=== PATIENT | male | born 1960 | race African-American/Black ===

== ENCOUNTER 2017-07-27 15:11 | Emergency (ER) | payer SELFPAY ==
[2017-07-27 15:42] LABS: Bilirubin Negative (Negative); Blood, Urine Negative (Negative); Glucose, Urine (Dipstick) >=1000 mg/dL (Negative); Ketone, Urine 15 mg/dL (Negative); Nitrite Negative (Negative); Protein, Urine (Dipstick) 100 mg/dL (Neg-Trace)
[2017-07-27] MEDS ORDERED: Ketorolac Tromethamine 60 MG/2 ML VIAL ONE (15:44)
[2017-07-27 15:50] LABS: Bacteria/HPF None Seen HPF (None Seen); Hyaline Casts/LPF 4-6 HYALINE CAST LPF (0-3 Hyaline); Squamous Epithelial None Seen HPF (0-3); WBC/HPF 0-3 HPF (0-3)
== END 2017-07-27 16:00 | disposition home or self-care (01) ==
LOC: ERS 15:11
DX: M54.5 Low back pain (principal); R60.0 Localized edema; I11.0 Hypertensive heart disease with heart failure; I50.9 Heart failure, unspecified; E11.9 Type 2 diabetes mellitus without complications; E78.5 Hyperlipidemia, unspecified; F32.9 Major depressive disorder, single episode, unspecified
CPT/HCPCS: 36416; 81003; 81015; 96372; J1885

== ENCOUNTER 2017-10-19 14:09 | Emergency (ER) | payer SELFPAY | END 2017-10-19 17:35 | disposition home or self-care (01) | LOC: ERS 14:09 | DX: J11.1 Influenza due to unidentified influenza virus with other respiratory manifestations (principal); I11.0 Hypertensive heart disease with heart failure; I50.9 Heart failure, unspecified; E11.9 Type 2 diabetes mellitus without complications; E78.5 Hyperlipidemia, unspecified; F32.9 Major depressive disorder, single episode, unspecified | CPT/HCPCS: 36416; 99283 ==

== ENCOUNTER 2019-02-02 16:53 | Emergency (ER) | payer SELFPAY ==
--- NOTE | 2019-02-02 17:43 | RAD ---
FEXAM: Portable chest PROVIDED CLINICAL HISTORY: Chest pain COMPARISON: 10/06/2016 FINDINGS: Cardiac and mediastinal silhouette is within normal limits. No focal consolidation, pleural fluid or pneumothorax evident. IMPRESSION: No evidence for an acute cardiopulmonary process.
[2019-02-02 17:52] LABS: #Eosinphils 0.1 thou/uL (0.0-0.7); #Lymphocytes 1.9 thou/uL (1.20-3.40); #Monocytes 0.5 thou/uL (0.11-0.59); #Neutrophils 4.9 thou/uL (1.40-6.50); %Basophils 0.6 % (0.0-1.0); %Eosinophils 1.4 % (0.0-10.0); %Lymphocytes 25.3 % (21.0-51.0); %Monocytes 6.7 % (0.0-10.0); Hemoglobin 15.7 g/dL (14.0-18.0); Mean Corpuscular Hemoglobin 28.3 pg (27.0-31.0); Mean Corpuscular Volume 91.6 fL (78.0-98.0); Mean Platelet Volume 9.2 fL (7.4-10.4); Platelet Count 166 thou/uL (130-400); RBC Distribution Width 11.6 % (11.5-14.5); Red Blood Cell (RBC) Count 5.55 mill/uL (4.70-6.10); White Blood Cell (WBC) Count 7.4 thou/uL (4.8-10.8)
[2019-02-02 18:15] LABS: ALT (SGPT) 16 U/L (8-55); AST (SGOT) 12 U/L (5-34); Albumin 3.9 g/dL (3.5-5.0); Alkaline Phosphatase 70 U/L (40-150); Anion Gap 16 mmol/L (10-20); BUN (Urea Nitrogen) 24 mg/dL (8.4-25.7); Bilirubin, Total 0.6 mg/dL (0.2-1.2); Calc. Creatinine Clearance 0 mL/min (70-130); Calcium 9.7 mg/dL (7.8-10.44); Carbon Dioxide 26 mmol/L (22-29); Chloride 93 mmol/L (98-107); Estimated GFR-MDRD 50; Globulin 3.3 g/dL (2.4-3.5); Protein, Total 7.2 g/dL (6.0-8.3); Sodium 130 mmol/L (136-145)
[2019-02-02 18:23] LABS: Glucose 583 mg/dL (70-105)
[2019-02-02] MEDS ORDERED: Insulin Regular 300 UNITS/3 ML VIAL ONE (18:43)
[2019-02-02 18:56] LABS: Bilirubin Negative (Negative); Blood, Urine Negative (Negative); Clarity CLEAR (Clear); Glucose, Urine (Dipstick) >=1000 mg/dL (Negative); Leukocyte Negative (Negative); Nitrite Negative (Negative); Protein, Urine (Dipstick) Negative (Neg-Trace); Specific Gravity, Urine 1.034 (1.002-1.036); Urobilinogen 0.2 mg/dL (0.2-1.0)
== END 2019-02-02 20:22 | disposition home or self-care (01) ==
LOC: ERS 16:53
DX: E11.65 Type 2 diabetes mellitus with hyperglycemia (principal); R81 Glycosuria; E11.9 Type 2 diabetes mellitus without complications; E78.5 Hyperlipidemia, unspecified; I11.0 Hypertensive heart disease with heart failure; I50.9 Heart failure, unspecified; F32.9 Major depressive disorder, single episode, unspecified; Z79.4 Long term (current) use of insulin
CPT/HCPCS: 36415; 36416; 71045; 80053; 81003; 82010; 83880; 84484; 85025; 87086; 93005; 96361; 96374; J1815

== ENCOUNTER 2019-03-16 08:59 | Observation (INO) | payer SELFPAY ==
[2019-03-16] MEDS ORDERED: Ketorolac Tromethamine 30 MG/ML VIAL ONE (09:26)
[2019-03-16 09:57] LABS: #Eosinphils 0.1 thou/uL (0.0-0.7); #Lymphocytes 1.6 thou/uL (1.20-3.40); #Monocytes 0.6 thou/uL (0.11-0.59); #Neutrophils 4.3 thou/uL (1.40-6.50); %Basophils 0.5 % (0.0-1.0); %Eosinophils 1.7 % (0.0-10.0); %Lymphocytes 24.2 % (21.0-51.0); %Monocytes 8.6 % (0.0-10.0); %Neutrophils 65.1 % (42.0-75.0); Hemoglobin 14.1 g/dL (14.0-18.0); Mean Corpuscular HGB CONC 32.7 g/dL (32.0-36.0); Mean Corpuscular Hemoglobin 29.9 pg (27.0-31.0); Mean Corpuscular Volume 91.3 fL (78.0-98.0); Mean Platelet Volume 8.7 fL (7.4-10.4); Platelet Count 167 thou/uL (130-400); Red Blood Cell (RBC) Count 4.74 mill/uL (4.70-6.10); White Blood Cell (WBC) Count 6.6 thou/uL (4.8-10.8)
[2019-03-16 10:17] LABS: ALT (SGPT) 13 U/L (8-55); AST (SGOT) 14 U/L (5-34); Albumin 3.4 g/dL (3.5-5.0); Alkaline Phosphatase 50 U/L (40-150); Anion Gap 14 mmol/L (10-20); BUN (Urea Nitrogen) 26 mg/dL (8.4-25.7); Bilirubin, Total 0.5 mg/dL (0.2-1.2); CK (CPK) 132 U/L (30-200); Calc. Creatinine Clearance 0 mL/min (70-130); Calcium 9.5 mg/dL (7.8-10.44); Carbon Dioxide 25 mmol/L (22-29); Chloride 102 mmol/L (98-107); Estimated GFR-MDRD 74; Globulin 3.1 g/dL (2.4-3.5); Glucose 177 mg/dL (70-105); Potassium 3.9 mmol/L (3.5-5.1); Protein, Total 6.5 g/dL (6.0-8.3); Sodium 137 mmol/L (136-145)
[2019-03-16] MEDS ORDERED: Nitroglycerin 0.4 MG TAB (25 Tab Bottle) SL PRN (12:43)
[2019-03-16] MEDS ORDERED: Benzonatate 100 MG CAP PO PRN (12:43)
[2019-03-16] MEDS ORDERED: hydrALAZINE 20 MG/ML VIAL SLOW IVP PRN (12:43)
[2019-03-16] MEDS ORDERED: Ondansetron PF 4 MG/2 ML Vial IVP PRN ×2 (12:43)
[2019-03-16] MEDS ORDERED: Diabetic Tussin 200 MG/10 ML UDCUP PO PRN (12:43)
[2019-03-16] MEDS ORDERED: Senokot S 8.6-50 MG TAB PO PRN (12:43)
[2019-03-16] MEDS ORDERED: Bisacodyl 5 MG TAB PO PRN (12:43)
[2019-03-16] MEDS ORDERED: Sodium Chloride 0.65% Nasal 44 ML BOT EA NARE PRN (12:43)
[2019-03-16] MEDS ORDERED: Acetaminophen 325 MG TAB PO PRN (12:43)
[2019-03-16] MEDS ORDERED: Sodium Chloride 0.9% 1,000 ML IV SCH (12:45)
[2019-03-16] MEDS ORDERED: Dextrose 50% Abboject 50 ML SYRINGE SLOW IVP PRN (13:04)
[2019-03-16] MEDS ORDERED: HumaLOG 300 UNITS/3 ML VIAL SC PRN (13:04)
[2019-03-16] MEDS ORDERED: Dextrose 5% in Water 1,000 ML IV PRN (13:04)
[2019-03-16] MEDS: Sodium Chloride 0.9% 1,000 ML IV SCH (13:26)
--- NOTE | 2019-03-16 13:43 | HP ---
PRIMARY CARE PHYSICIAN: [facility]. CHIEF COMPLAINT: Diffuse muscle aches. HISTORY OF PRESENTING ILLNESS: Mr. Joseph is a 58-year-old male with past medical history of diabetes mellitus, hypertension, chronic combined congestive heart failure, who presented to the emergency room with above-mentioned complaint. History is mainly obtained by the patient himself and electronic medical records have been reviewed. Case has been discussed with the emergency room physician, Dr. Chan. The patient came to the ER today for worsening muscle cramps. When it is asked him specifically how long he has been having it, he eventually said that it has been going on for months. He denies any recent illnesses. He denies any nausea, vomiting, diarrhea, abdominal pain. He denies any blood in his urine or stools. He denies any recent illnesses with fever, chills, sore throat, rhinorrhea, etc. He denies any chest pain, shortness of breath either. He has good oral intake. He is compliant with his medications. He also denies any weight loss or weight gain. He does have some dizziness when getting up. Mostly the cramps are happening in his legs and in his hands. Upon presentation to the emergency room, he was hemodynamically stable with a blood pressure of 146/87, pulse of 77, saturating 98% on room air. His blood work was rather unimpressive. The lactic acid, however, was elevated to 4.8. This is with normal levels of creatine kinase at 132 and normal levels of creatinine at 1.23. His BUN is slightly increased at 26. He was diagnosed as having lactic acidosis most likely from metformin. He is now being admitted to medical floor under observation status for same. PAST MEDICAL HISTORY: 1. Diabetes mellitus type 2. The patient reports he has been on metformin for at least 30 or 40 years. 2. History of chronic combined heart failure based on the echocardiogram done in 2013. His EF was estimated as 20% to 25% at that time. 3. Hypertension with hypertensive heart disease. 4. Moderate aortic insufficiency. 5. Dyslipidemia. 6. History of tobacco abuse in the past. PAST SURGICAL HISTORY: Reviewed with the patient and none. ALLERGIES: NO KNOWN MEDICATION ALLERGIES. SOCIAL HISTORY: He quit smoking about 18 years ago. No history of drug, tobacco, or alcohol abuse currently. The patient lives at the [place]. FAMILY HISTORY: Mother had history of bypass surgery in the hospital. HOME MEDICATIONS: He does not remember which medication he takes and he does not have any list or his medication bottles with him. PAST PSYCHIATRIC HISTORY: History of suicide attempts by cutting his throat in 2015, history of multiple psychiatric admissions, last admission to [facility] in 2014. REVIEW OF SYSTEMS: A 14-point review of system is done and is negative except for those mentioned in the history and physical. CONSTITUTIONAL: Negative for weight loss or gain, ability to conduct usual activities. SKIN: Negative for rash, itching. EYES: Negative for double vision, pain. ENT/MOUTH: Negative for nose bleeding, neck stiffness, pain, tenderness. CARDIOVASCULAR: Negative for palpitations, dyspnea on exertion, orthopnea. RESPIRATORY: Negative for shortness of breath, wheezing, cough, hemoptysis, fever or night sweats. GASTROINTESTINAL: Negative for poor appetite, abdominal pain, heartburn, nausea, vomiting, constipation, or diarrhea. GENITOURINARY: Negative for urgency, frequency, dysuria, nocturia. MUSCULOSKELETAL: Negative for pain, swelling. NEUROLOGIC/PSYCHIATRIC: Negative for anxiety, depression. ALLERGY/IMMUNOLOGIC: Negative for skin rash, bleeding tendency. LABORATORY DATA: His CBC is unremarkable. Serum chemistry showed BUN 26, creatinine 1.23, blood sugar 177, lactic acid 4.8 with normal creatine kinase and normal liver enzymes. Normal magnesium at 2.0. PHYSICAL EXAMINATION: VITAL SIGNS: Upon presentation, blood pressure 146/87, pulse of 77, respirations 15, saturating 98% on room air, temperature 97.5. GENERAL: No acute distress. He is somewhat uncomfortable, but is awake, alert, and oriented x3. HEENT: Mucous membrane is moist and pink. No oropharyngeal exudate or erythema. Head is normocephalic and atraumatic. Pupils are equal and reactive to light and accommodation. Extraocular movement intact. NECK: Supple without any lymphadenopathy, JVD, or bruit. CHEST: Clear to auscultation without any wheezing, rales, or rhonchi. HEART: Rate and rhythm is regular without any murmurs, rubs, or gallops. ABDOMEN: Soft, nontender, nondistended with positive bowel sounds. EXTREMITIES: Free of any cyanosis, clubbing, or edema. NEUROLOGIC: Nonfocal. SKIN: Free of any rashes or bruises. Feels warm and dry to touch. PSYCHIATRIC: Normal affect. IMPRESSION AND PLAN: 1. Lactic acidosis. This most likely is because of the metformin. We will hold the metformin and start him on gentle IV fluids for now. He has no evidence to suggest rhabdomyolysis or renal failure as a cause of lactic acidosis. He does not have any hypoxia, hypothermia, or hypertension to suggest hypoperfusion of the tissues to cause lactic acidosis. We will, however, consult Nephrology for further recommendations and monitor and recheck lactic acid in the morning. At this time, he does not have any signs or symptoms to suggest a sepsis or infectious process either. 2. Chronic combined congestive heart failure, stage A. He is currently compensated. We will try to reconcile his home medications from [facility] and restart them. 3. Diabetes mellitus type 2. We will stop his metformin and the patient has been instructed with regard to this. While in the hospital, he will be treated with insulin sliding scale with Accu-Cheks a.c. and at bedtime. 4. History of dyslipidemia. We will hold the statins if the patient is on them for now because of unclear interaction with metformin and lactic acidosis. Reconcile home medications. 5. History of psychiatric illness. The patient reports being on some medications for it. Once again, we need to reconcile the medications to avoid interactions in the future. 6. History of hypertension. The patient does not remember his medications. We will use p.r.n. antihypertensives and get the correct list of his medications. DISPOSITION: Mr. Joseph will be admitted to medical floor under observation status for metformin-induced lactic acidosis. Further management will depend upon his clinical course. Job ID: [id number]
[2019-03-16 14:02] VITALS: BMI 26.6
[2019-03-16 14:09] LABS: Lactic Acid 2.2 mmol/L (0.5-2.2)
[2019-03-16 14:16] LABS: Bilirubin Negative (Negative); Blood, Urine Negative (Negative); Clarity CLEAR (Clear); Glucose, Urine (Dipstick) 500 mg/dL (Negative); Leukocyte Negative (Negative); Nitrite Negative (Negative); Protein, Urine (Dipstick) 30 mg/dL (Neg-Trace); Specific Gravity, Urine 1.027 (1.002-1.036); pH, Urine 5.5 (5.0-9.0)
[2019-03-16 14:18] LABS: Bacteria/HPF None Seen HPF (None Seen); Hyaline Casts/LPF 4-6 HYALINE CAST LPF (0-3 Hyaline); Pathc Cast-AUWi Flag 0.27 (0-2.49); Squamous Epithelial None Seen HPF (0-3); WBC/HPF 0-3 HPF (0-3)
[2019-03-16 14:20] LABS: Urine Culture Reflex No No
[2019-03-16] MEDS: HumaLOG 300 UNITS/3 ML VIAL SC PRN (16:54)
[2019-03-16] MEDS: cloNIDine 0.1 MG TAB PO PRN (20:44)
--- NOTE | 2019-03-17 00:20 | CON ---
DATE OF CONSULTATION: CONSULTING PHYSICIAN: Amari Barraza MD REASON FOR CONSULTATION: Lactic acidosis. IMPRESSION: Lactic acidosis, query cause. This may be related to medication in this case, metformin, however, one cannot completely rule out other potential etiologies of tissue ischemia. PLAN: To aid on the side of caution, we will hold metformin and rehydrate this patient and monitor the lactic acid level. Hopefully, this simple measure will address these findings. HISTORY OF PRESENT ILLNESS: History is that of 58-year-old gentleman with type 2 diabetes, hypertension, chronic congestive heart failure, presented to the ER with generalized cramps and noted with elevated lactic acid level above 4. As a result of these findings, decision has been taken to involve Renal in the management of this case. Otherwise, the patient's renal function is okay. PAST MEDICAL HISTORY: Type 2 diabetes, systolic heart failure, hypertension with aortic insufficiency, and dyslipidemia. ALLERGIES: NO KNOWN DRUG ALLERGIES. FAMILY HISTORY: No family history significant related to present illness. SOCIAL HISTORY: Remote tobacco use. REVIEW OF SYSTEMS: As documented in the body of the history. All other systems were reviewed and found not to be significantly related to presenting illness. PHYSICAL EXAMINATION: VITAL SIGNS: On examination, the patient noted with the following vital signs; afebrile, temperature 97.9, pulse 60, respiratory rate of 16, O2 saturation of 97% with blood pressure 133/74. HEENT: Unremarkable. Moist oral mucosa. NECK: Supple. No conjunctival injection or icterus. CARDIOVASCULAR SYSTEM: First and second heart sounds were heard. RESPIRATORY SYSTEM: Clear to auscultation. DIGESTIVE SYSTEM: Revealed a benign abdomen. Positive bowel sounds. EXTREMITIES: No peripheral edema. SKIN: No new gross rash. LYMPHATICS: No peripheral lymphadenopathy. SUMMARY: This is a 58-year-old gentleman who presented here with generalized body aches and pain and cramps and noted with elevated lactic acid. Thank you for this consultation. We will follow with you. Job ID: [id number]
[2019-03-17] MEDS: Sodium Chloride 0.9% 1,000 ML IV SCH ×2 (02:16→16:36)
[2019-03-17] MEDS: HumaLOG 300 UNITS/3 ML VIAL SC PRN ×2 (06:28→12:43)
[2019-03-17 08:18] LABS: #Basophils 0.1 thou/uL (0.0-0.2); #Eosinphils 0.2 thou/uL (0.0-0.7); #Lymphocytes 1.5 thou/uL (1.20-3.40); #Monocytes 0.4 thou/uL (0.11-0.59); #Neutrophils 3.5 thou/uL (1.40-6.50); %Basophils 0.9 % (0.0-1.0); %Eosinophils 3.5 % (0.0-10.0); %Monocytes 7.3 % (0.0-10.0); %Neutrophils 61.3 % (42.0-75.0); Mean Corpuscular HGB CONC 33.5 g/dL (32.0-36.0); Mean Corpuscular Hemoglobin 30.2 pg (27.0-31.0); Mean Platelet Volume 9.2 fL (7.4-10.4); Platelet Count 154 thou/uL (130-400); RBC Distribution Width 12.1 % (11.5-14.5); Red Blood Cell (RBC) Count 4.64 mill/uL (4.70-6.10); White Blood Cell (WBC) Count 5.7 thou/uL (4.8-10.8)
[2019-03-17 08:42] LABS: Anion Gap 12 mmol/L (10-20); BUN (Urea Nitrogen) 15 mg/dL (8.4-25.7); Calc. Creatinine Clearance 126 mL/min (70-130); Calcium 8.6 mg/dL (7.8-10.44); Carbon Dioxide 22 mmol/L (22-29); Chloride 103 mmol/L (98-107); Estimated GFR-MDRD Greater than 90; Glucose 264 mg/dL (70-105); Potassium 3.9 mmol/L (3.5-5.1); Sodium 133 mmol/L (136-145)
[2019-03-17] MEDS ORDERED: Carvedilol 3.125 MG TAB PO SCH (09:00)
[2019-03-17] MEDS ORDERED: Lisinopril 5 MG TAB PO SCH (09:00)
[2019-03-17] MEDS ORDERED: Enoxaparin Sodium 40 MG/0.4 ML SYRINGE SC SCH (09:00)
[2019-03-17] MEDS ORDERED: HumuLIN 70/30 (300 UNITS/3 ML VIAL) SC SCH (09:00)
[2019-03-17 11:08] LABS: Lactic Acid 1.4 mmol/L (0.5-2.2)
--- NOTE | 2019-03-17 14:49 | MRI ---
MRI Lumbar Spine WO Con History: [Left leg numbness and radiculopathy. Left low back pain.] Comparison: None. Findings: No hydronephrosis. Visualized portion of the aorta is unremarkable. No retroperitoneal bernardo opathy. No marrow infiltrative process. The conus medullaris terminates at the superior endplate of L2. Levels are as follows: L1/L2: Normal disc. No neural foraminal or spinal canal narrowing. L2/L3: Normal disc. No neural foraminal or spinal canal narrowing. L3/L4: Asymmetric disc bulge with small associated osteophyte involving the left lateral recess, fora rober zone, and extraforaminal zone with moderate left neural foraminal narrowing. There is abutment of the left exiting and traversing nerve roots. Small right sided foraminal posterior disc o steophyte complex. Mild right neural foraminal narrowing. L4/L5: Moderate disc desiccation. Asymmetric left lateral recess, subforaminal, and extraforaminal di sc bulge with small associated osteophyte. There is extension of disc bulge centrally and to the right involving the right-sided foraminal zone with a small disc osteophyte complex causing mild righ t neural foraminal narrowing. There is abutment of the left exiting and traversing nerve root. L5/S1: Central disc herniation with disc desiccation. Minimal effacement of the ventral CSF space. Impression: 1. Asymmetric disc bulges on the left at L3/L4 and L4/L5 abutting both exiting and traversing nerve r oots. 2. Central disc protrusion at L5/S1 with some mild effacement of ventral CSF space without subsequent foraminal extension.
[2019-03-17 16:51] VITALS: TEMP 98.3
[2019-03-17] MEDS: cloNIDine 0.1 MG TAB PO PRN (16:56)
--- NOTE | 2019-03-17 17:32 | PRG ---
DATE OF SERVICE: 03/17/2019 SUBJECTIVE: The patient is seen and examined, seems to be doing very okay. OBJECTIVE: VITAL SIGNS: Noted with the following vital signs, afebrile, temperature 98.3, pulse 70, respiratory rate of 16, O2 saturation 100% with blood pressure of 129/78. HEENT: Unremarkable. CARDIOVASCULAR SYSTEM: First and second heart sounds were heard. RESPIRATORY SYSTEM: Clear to auscultation. DIGESTIVE SYSTEM: Revealed a benign abdomen. Positive bowel sounds. EXTREMITIES: No peripheral edema. SKIN: No new gross rash. LYMPHATICS: No peripheral lymphadenopathy. IMPRESSION: Lactic acidosis, possibly in the context of metformin usage. PLAN: 1. Metformin on hold. 2. Further management will be dependent on the clinical course. Job ID: [id number]
[2019-03-17 17:41] VITALS: BP 155/79
--- NOTE | 2019-03-18 10:22 | DIS ---
DATE OF ADMISSION: 03/16/2019 DATE OF DISCHARGE: 03/17/2019 CONSULTING PHYSICIAN: Dr. Fitzpatrick, Nephrology. DISCHARGE DIAGNOSES: 1. Lactic acidosis. 2. Type 2 diabetes mellitus. 3. Congestive heart failure. 4. Hyperlipidemia. HOSPITAL COURSE: Mr. Joseph is a 58-year-old man, who was admitted due to acidosis after presenting with diffuse muscle aches. The patient is known to have type 2 diabetes mellitus. He has been on metformin, which was felt to be the culprit of his lactic acidosis. A consult was placed with Nephrology and he was seen by Dr. Fitzpatrick. His metformin was held and the patient did have improvement. The patient on day of discharge did complain of pain in the left side of his lower back with numbness and pain shooting down the left lower extremity. He reports having chronic issues with low back pain, particularly in the left lower lumbar spine. For that reason, an MRI was obtained, which showed asymmetric disk bulges in the left at L3-L4 and L4-L5 abutting both exiting and traversing nerve roots. He had central disk protrusion at L5-S1 with some mild effacement of ventral CSF space without subsequent foraminal extension. The patient had no complaints of weakness in either extremity. No numbness at present. Power was normal and he has been able to mobilize without difficulty. He was therefore cleared by Dr. Matias to follow up with his primary care physician with regard to the lumbar spine findings and possibly undergo referral to Neurosurgery. Laboratory studies showed normal renal function and normal lactic acid of 1.4 compared to 4.8 on initial presentation. His remaining labs were unremarkable. The patient apparently did tell the floor nurse that he had been seeking long-term disability and though he did complain initially of a significant pain and inability to move his lower legs and inability to walk, he has been witnessed to move around within his room without difficulty. There were inconsistencies with his exam. Therefore, MRI findings were of no significant concern and he has been cleared for followup with his primary care physician, with whom he can discuss his concerns regarding long-term disability. REVIEW OF SYSTEMS: The patient denies having any fevers, chills, or sweats. Denies having any headaches or dizziness. Denies having any abdominal pain or cramping. No nausea or vomiting. No chest pain, palpitations, or shortness of breath. Reports generalized muscle aches and states this has been chronic. Reports having diabetic neuropathy that is stable. States he is able to walk to the store and ride his bike and at times has difficulty walking back home after doing so. No urinary incontinence and no bowel incontinence. No saddle anesthesia or paresthesias. All other review of systems are negative. PHYSICAL EXAMINATION: GENERAL: The patient appears well developed, well nourished, and is in no acute distress. VITAL SIGNS: Temperature 98.3, pulse 75, respirations 16, O2 saturation 100% on room air, and blood pressure 155/79. HEENT: Normocephalic and atraumatic. Pupils are equal, round, and reactive to light. Sclerae are without icterus. Oropharynx is clear. NECK: Supple without lymphadenopathy. LUNGS: Clear to auscultation bilaterally without wheezes, rales, or rhonchi. CARDIAC: Regular rate and rhythm without audible murmurs, rubs, or gallops. ABDOMEN: Soft, nontender, and nondistended. Normoactive bowel sounds present. EXTREMITIES: The patient with inconsistent exam regarding power. Initially reluctant to perform straight leg raise, stating that he has "paralysis" of the left lower leg," however, has full tone and leg is very stiff when passively lifting leg. It does not drop down to the bed and he is able to hold it in the air before bringing it down himself. Sensation is intact bilaterally. Reflexes intact. NEUROLOGIC: Alert and oriented x3. SKIN: Without rash or jaundice. INVESTIGATIONS: As mentioned above in hospital course. IMAGING DATA: As mentioned above in hospital course. CONDITION: Stable at discharge. DIET: Heart healthy/diabetic diet. ACTIVITY: As tolerated. DISCHARGE MEDICATIONS: 1. The patient advised to resume his regular home medications. 2. Metformin discontinued as felt to be the culprit for lactic acidosis and diffuse muscle aching. 3. Prescription given initially for glyburide 2.5 mg p.o. daily. However, given low glucose levels, this was discontinued and he was advised to follow up with his primary care physician for further management of his diabetes. I did contact the pharmacy to cancel that prescription. DISPOSITION: The patient medically cleared for discharge home on 03/17/2019. The patient's case was discussed with Dr. Matias, who agrees with the plan of care as described above. Job ID: [id number]
== END 2019-03-17 17:58 | disposition home or self-care (01) ==
LOC: ERS 08:59 → T4-B 11:41
PROVIDERS: ADMIT Internal Medicine; ATTEND Internal Medicine
DX: E11.10 Type 2 diabetes mellitus with ketoacidosis without coma (principal); I11.0 Hypertensive heart disease with heart failure; I50.42 Chronic combined systolic (congestive) and diastolic (congestive) heart failure; I35.1 Nonrheumatic aortic (valve) insufficiency; E78.5 Hyperlipidemia, unspecified; M51.26 Other intervertebral disc displacement, lumbar region; Z91.5 Personal history of self-harm; Z87.891 Personal history of nicotine dependence; Z79.4 Long term (current) use of insulin; Z79.899 Other long term (current) drug therapy
CPT/HCPCS: 36415; 36416; 72148; 80048; 80053; 81001; 82550; 83605; 83735; 85025; 96361; 96372; 96374; G0378; J1650; J1815; J1885

== ENCOUNTER 2019-04-08 02:21 | Observation (INO) | payer SELFPAY ==
[2019-04-08 02:58] LABS: #Eosinphils 0.2 thou/uL (0.0-0.7); #Lymphocytes 1.6 thou/uL (1.20-3.40); #Monocytes 0.8 thou/uL (0.11-0.59); #Neutrophils 4.9 thou/uL (1.40-6.50); %Basophils 0.5 % (0.0-1.0); %Eosinophils 2.5 % (0.0-10.0); %Lymphocytes 21.1 % (21.0-51.0); %Monocytes 11.1 % (0.0-10.0); %Neutrophils 64.9 % (42.0-75.0); Hemoglobin 13.3 g/dL (14.0-18.0); Mean Corpuscular HGB CONC 33.1 g/dL (32.0-36.0); Mean Corpuscular Hemoglobin 30.5 pg (27.0-31.0); Mean Corpuscular Volume 92.3 fL (78.0-98.0); Mean Platelet Volume 8.5 fL (7.4-10.4); Platelet Count 153 thou/uL (130-400); RBC Distribution Width 12.5 % (11.5-14.5); Red Blood Cell (RBC) Count 4.35 mill/uL (4.70-6.10); White Blood Cell (WBC) Count 7.6 thou/uL (4.8-10.8)
[2019-04-08 03:19] LABS: ALT (SGPT) 18 U/L (8-55); AST (SGOT) 16 U/L (5-34); Albumin 3.2 g/dL (3.5-5.0); Alkaline Phosphatase 42 U/L (40-150); Anion Gap 12 mmol/L (10-20); BUN (Urea Nitrogen) 25 mg/dL (8.4-25.7); Bilirubin, Total 0.3 mg/dL (0.2-1.2); Calc. Creatinine Clearance 0 mL/min (70-130); Carbon Dioxide 27 mmol/L (22-29); Chloride 103 mmol/L (98-107); Estimated GFR-MDRD 82; Globulin 2.9 g/dL (2.4-3.5); Glucose 107 mg/dL (70-105); Potassium 3.6 mmol/L (3.5-5.1); Protein, Total 6.1 g/dL (6.0-8.3); Sodium 138 mmol/L (136-145)
[2019-04-08] MEDS ORDERED: Ondansetron ODT 4 MG TAB SL PRN (05:14)
[2019-04-08] MEDS ORDERED: Acetaminophen 325 MG TAB PO PRN ×2 (05:14→09:35)
[2019-04-08] MEDS ORDERED: Ondansetron PF 4 MG/2 ML Vial IVP PRN (05:14)
[2019-04-08] MEDS ORDERED: Dextrose 5% in Water 1,000 ML IV SCH (05:15)
[2019-04-08 06:24] VITALS: BMI 27.1
[2019-04-08] MEDS ORDERED: Bisacodyl 5 MG TAB PO PRN (09:35)
[2019-04-08] MEDS ORDERED: Dextrose 5% in Water 1,000 ML IV PRN ×2 (09:35→21:07)
[2019-04-08] MEDS ORDERED: Dextrose 50% Abboject 50 ML SYRINGE SLOW IVP PRN ×2 (09:35→21:07)
[2019-04-08 11:48] LABS: Amphetamine Not Detected (NotDetected); Barbiturates Screen Not Detected (NotDetected); Benzodiazepine Screen Not Detected (NotDetected); Cocaine Metabolite Screen Not Detected (NotDetected); Medtox Control Line Valid? VALID (VALID); Medtox Reader # READER 4; Methadone Not Detected (NotDetected); Methamphetamine Not Detected (NotDetected); Opiate Screen Not Detected (NotDetected); Oxycodone Screen Not Detected (NotDetected); Phencyclidine (PCP) Not Detected (NotDetected); THC/Cannabinoid Screen Not Detected (NotDetected); Tricyclic Screen Not Detected (NotDetected)
--- NOTE | 2019-04-08 12:35 | HP ---
PRIMARY CARE PROVIDER: [facility] [place]. CHIEF COMPLAINT: Low blood sugar. HISTORY OF PRESENT ILLNESS: Mr. Joseph is a pleasant 58-year-old gentleman, who was seen at [facility] on 04/08/2019. He reports that he uses insulin. His insulin doses are being adjusted. He checks his blood sugars 2 times a day. He took 30 units NovoLog 70/30 yesterday at mealtime, then he ate his supper. He woke up on the floor and is not sure how he got to the floor. He checked his blood sugar. He was found to have blood sugar of 41. He was therefore brought to the emergency room. He denies any chest pain or shortness of breath. He denies any diaphoresis. He denies any nausea or vomiting. He denies any headaches. He denies any stroke-like symptoms. REVIEW OF SYSTEMS: All other systems reviewed and found to be negative. PAST MEDICAL HISTORY: 1. Congestive heart failure. 2. Diabetes mellitus type 2. 3. Dyslipidemia. 4. Hypertension. PAST SURGICAL HISTORY: None. PSYCHIATRIC HISTORY: Suicide attempt by cutting throat in 2015 and depression. SOCIAL HISTORY: The patient denies tobacco use, alcohol use, or recreational drug use. FAMILY HISTORY: The patient denies any family history of premature coronary artery disease. ALLERGIES: NO KNOWN DRUG ALLERGIES. CURRENT MEDICATIONS: Humalog 70/30, 30 units 2 times a day. PHYSICAL EXAMINATION: GENERAL: On examination, Mr. Joseph is awake and alert, not in acute distress. VITAL SIGNS: Blood pressure is 124/66, pulse 75, respiratory rate 16, and oxygen saturation 97% on room air. He is afebrile. EYES: No scleral icterus. No conjunctival pallor. ENT: Moist mucosal membranes. No oropharyngeal erythema or exudates. NECK: Supple, nontender. Trachea is midline. RESPIRATORY: Accessory muscles of breathing are not active. Chest wall movements are symmetric bilaterally. Lungs are clear to auscultation without wheeze, rhonchi, or crepitations. CARDIOVASCULAR: S1 and S2 are heard, regular. Peripheral pulses palpable. ABDOMEN: Soft, nontender. Bowel sounds heard. NEUROLOGIC: Cranial nerves 2 through 12 intact. Deep tendon reflexes 2+. MUSCULOSKELETAL: Power is 5/5 in all 4 extremities. SKIN: No rashes or subcutaneous nodules. LYMPHATIC: No cervical lymphadenopathy. PSYCHIATRIC: Normal mood, normal affect. The patient is oriented to person, place, and time. LABORATORY DATA: Mr. Joseph's labs and investigations were reviewed. He has normal white count, normocytic anemia with hemoglobin 13.3, normal platelet count, unremarkable comprehensive metabolic profile. He was hypoglycemic, but blood sugars have improved. Urine toxicology screen is negative. ASSESSMENT AND PLAN: Mr. Joseph is a pleasant 58-year-old gentleman, who was seen at [facility] on 04/08/2019. His problem list includes: 1. Hypoglycemia: Etiology is unclear at this time, we will decrease his insulin dose and follow Accu-Cheks. We will start him on hypoglycemia protocol. 2. Hypertension: We will monitor vital signs and add antihypertensives as needed. 3. Dyslipidemia: The patient does not appear to be taking medications for this at this time. We will advise him to follow up with primary care provider. Many thanks for allowing me to participate in your patient's care. Please feel free to contact me with any questions or concerns. LEVEL OF RISK: Moderate. LEVEL OF COMPLEXITY: Moderate. Job ID: [id number]
[2019-04-08] MEDS ORDERED: HumaLOG 300 UNITS/3 ML VIAL SC SCH (14:15)
[2019-04-08] MEDS: HumuLIN 70/30 (300 UNITS/3 ML VIAL) SC SCH (18:43)
[2019-04-08] MEDS ORDERED: HumuLIN 70/30 (300 UNITS/3 ML VIAL) SC SCH (21:00)
[2019-04-08] MEDS ORDERED: Insulin Regular 300 UNITS/3 ML VIAL SC PRN (21:07)
[2019-04-09 05:21] LABS: #Basophils 0.1 thou/uL (0.0-0.2); #Eosinphils 0.2 thou/uL (0.0-0.7); #Monocytes 0.8 thou/uL (0.11-0.59); #Neutrophils 3.8 thou/uL (1.40-6.50); %Basophils 1.2 % (0.0-1.0); %Eosinophils 3.5 % (0.0-10.0); %Lymphocytes 29.7 % (21.0-51.0); %Neutrophils 54.7 % (42.0-75.0); Hemoglobin 13.1 g/dL (14.0-18.0); Mean Corpuscular HGB CONC 31.6 g/dL (32.0-36.0); Mean Corpuscular Hemoglobin 29.1 pg (27.0-31.0); Mean Corpuscular Volume 92.3 fL (78.0-98.0); Mean Platelet Volume 8.4 fL (7.4-10.4); Platelet Count 158 thou/uL (130-400); RBC Distribution Width 12.5 % (11.5-14.5); Red Blood Cell (RBC) Count 4.49 mill/uL (4.70-6.10); White Blood Cell (WBC) Count 6.9 thou/uL (4.8-10.8)
[2019-04-09 05:49] LABS: Anion Gap 12 mmol/L (10-20); BUN (Urea Nitrogen) 13 mg/dL (8.4-25.7); Calc. Creatinine Clearance 115 mL/min (70-130); Carbon Dioxide 24 mmol/L (22-29); Chloride 103 mmol/L (98-107); Estimated GFR-MDRD Greater than 90; Glucose 219 mg/dL (70-105); Potassium 3.9 mmol/L (3.5-5.1); Sodium 135 mmol/L (136-145)
[2019-04-09] MEDS: Insulin Regular 300 UNITS/3 ML VIAL SC PRN ×2 (06:01→11:40)
[2019-04-09] MEDS: HumuLIN 70/30 (300 UNITS/3 ML VIAL) SC SCH (08:56)
[2019-04-09] MEDS ORDERED: HumuLIN 70/30 (300 UNITS/3 ML VIAL) SC SCH ×2 (11:00→21:00)
[2019-04-09 12:35] VITALS: BP 138/84; TEMP 99.5
--- NOTE | 2019-04-09 20:34 | DIS ---
DATE OF ADMISSION: 04/08/2019 DATE OF DISCHARGE: 04/09/2019 PRIMARY CARE PROVIDER: [facility] [place]. DISCHARGE DIAGNOSES: 1. Hypoglycemia. 2. Hyperkalemia. CONDITION OF PATIENT ON THE DAY OF DISCHARGE: Stable. I assessed Mr. Joseph on the day of discharge. He denies any chest pain or shortness of breath. Vital signs are stable. S1 and S2 are heard, regular. Lungs are clear to auscultation bilaterally. HOSPITAL COURSE: Mr. Joseph is a pleasant 58-year-old gentleman, who was admitted to [facility] on observation status on 04/08/2019, for hypoglycemia. Please refer to my history and physical note dated 04/08/2019, for further details. He was started on a decreased insulin dose, initially 15 units twice daily, but once his blood sugars started trending up, he was switched to 20 units twice daily. He did not have any further episodes of hypoglycemia. He is advised to check his blood sugars 3 times a day and show the readings to his primary care provider. He is advised to follow up with primary care provider in 3 days' time. DISCHARGE MEDICATIONS: Humulin 70/30 insulin 20 units 2 times a day. The patient has been advised to resume the rest of his home medications, he is unsure which ones he is taking. Many thanks for allowing me to participate in your patient's care. Please feel free to contact me with any questions or concerns. DISCHARGE DESTINATION: Home. Job ID: [id number]
== END 2019-04-09 15:20 | disposition home or self-care (01) ==
LOC: ERS 02:21 → 2SW 03:55
PROVIDERS: ADMIT Hospitalist; ATTEND Hospitalist
DX: E11.649 Type 2 diabetes mellitus with hypoglycemia without coma (principal); E87.5 Hyperkalemia; I11.0 Hypertensive heart disease with heart failure; I50.9 Heart failure, unspecified; E78.5 Hyperlipidemia, unspecified; F32.9 Major depressive disorder, single episode, unspecified; Z79.4 Long term (current) use of insulin; Z91.5 Personal history of self-harm
CPT/HCPCS: 36415; 36416; 80048; 80053; 80306; 85025; 96365; 96366; G0378; J1815

== ENCOUNTER 2019-05-03 17:47 | Emergency (ER) | payer SELFPAY ==
[2019-05-03 18:42] LABS: #Basophils 0.1 thou/uL (0.0-0.2); #Eosinphils 0.1 thou/uL (0.0-0.7); #Lymphocytes 1.7 thou/uL (1.20-3.40); #Monocytes 0.6 thou/uL (0.11-0.59); #Neutrophils 4.3 thou/uL (1.40-6.50); %Basophils 0.8 % (0.0-1.0); %Eosinophils 1.3 % (0.0-10.0); %Lymphocytes 25.5 % (21.0-51.0); %Monocytes 8.4 % (0.0-10.0); Hemoglobin 13.4 g/dL (14.0-18.0); Mean Corpuscular HGB CONC 33.3 g/dL (32.0-36.0); Mean Corpuscular Hemoglobin 30.6 pg (27.0-31.0); Mean Corpuscular Volume 91.7 fL (78.0-98.0); Mean Platelet Volume 9.6 fL (7.4-10.4); Platelet Count 150 thou/uL (130-400); RBC Distribution Width 11.6 % (11.5-14.5); Red Blood Cell (RBC) Count 4.37 mill/uL (4.70-6.10); White Blood Cell (WBC) Count 6.7 thou/uL (4.8-10.8)
[2019-05-03 19:05] LABS: ALT (SGPT) 13 U/L (8-55); AST (SGOT) 12 U/L (5-34); Albumin 3.5 g/dL (3.5-5.0); Alkaline Phosphatase 48 U/L (40-150); Anion Gap 12 mmol/L (10-20); BUN (Urea Nitrogen) 28 mg/dL (8.4-25.7); Bilirubin, Total 0.5 mg/dL (0.2-1.2); Calc. Creatinine Clearance 0 mL/min (70-130); Calcium 8.6 mg/dL (7.8-10.44); Carbon Dioxide 22 mmol/L (22-29); Chloride 100 mmol/L (98-107); Estimated GFR-MDRD 59; Globulin 3.1 g/dL (2.4-3.5); Glucose 392 mg/dL (70-105); Potassium 4.2 mmol/L (3.5-5.1); Protein, Total 6.6 g/dL (6.0-8.3); Sodium 130 mmol/L (136-145)
[2019-05-03 20:02] LABS: Bilirubin Negative (Negative); Blood, Urine 1+ (Negative); Clarity Clear (Clear); Glucose, Urine (Dipstick) Greater than 1000 mg/dL (Negative); Leukocyte Negative Leu/uL (Negative); Nitrite Negative (Negative); Protein, Urine (Dipstick) Negative (Neg-Trace); Squamous Epithelial 0-3 HPF (0-3); Urobilinogen Normal mg/dL (Less than 2)
[2019-05-04 11:03] LABS: Base Excess-Venous -1.5 mmol/L (-2.0 to 3.0); Bicarbonate (HCO3v) 23.5 mmol/L (22.0-28.0); CO2 Tension (PvCO2) 39.8 mmHg (40.0-50.0); Calcium, Ionized 1.08 mmol/L (See Comments:); Chloride 98 mmol/L (98-107); Hemoglobin - Calc 15.1 g/dL (14.0-18.0); Potassium 4.4 mmol/L (3.5-5.1); Sodium 131 mmol/L (138-145); T. Carbon Dioxide 24.7 mmol/L (22.0-28.0); vO2 Saturation-calc 98.9 % (60.0-85.0)
== END 2019-05-03 20:47 | disposition home or self-care (01) ==
LOC: ERS 17:47
DX: E11.65 Type 2 diabetes mellitus with hyperglycemia (principal)
CPT/HCPCS: 36415; 36416; 80053; 81003; 82330; 82435; 82803; 83735; 84132; 84295; 84484; 85014; 85025; 96360

== ENCOUNTER 2019-05-18 11:35 | Observation (INO) | payer SELFPAY ==
[2019-05-18] MEDS ORDERED: Ketorolac Tromethamine 30 MG/ML VIAL ONE (11:50)
[2019-05-18 12:20] LABS: #Eosinphils 0.1 thou/uL (0.0-0.7); #Lymphocytes 1.8 thou/uL (1.20-3.40); #Monocytes 0.5 thou/uL (0.11-0.59); #Neutrophils 4.4 thou/uL (1.40-6.50); %Basophils 0.4 % (0.0-1.0); %Eosinophils 1.7 % (0.0-10.0); %Lymphocytes 26.5 % (21.0-51.0); %Monocytes 7.6 % (0.0-10.0); %Neutrophils 63.8 % (42.0-75.0); Hemoglobin 14.6 g/dL (14.0-18.0); Mean Corpuscular HGB CONC 31.1 g/dL (32.0-36.0); Mean Corpuscular Hemoglobin 28.3 pg (27.0-31.0); Mean Corpuscular Volume 90.9 fL (78.0-98.0); Mean Platelet Volume 10.4 fL (7.4-10.4); Platelet Count 138 thou/uL (130-400); RBC Distribution Width 11.3 % (11.5-14.5); Red Blood Cell (RBC) Count 5.17 mill/uL (4.70-6.10); White Blood Cell (WBC) Count 6.9 thou/uL (4.8-10.8)
[2019-05-18 12:27] LABS: Bilirubin Negative (Negative); Blood, Urine Negative (Negative); Clarity Clear (Clear); Glucose, Urine (Dipstick) Greater than 1000 mg/dL (Negative); Leukocyte Negative Leu/uL (Negative); Nitrite Negative (Negative); Protein, Urine (Dipstick) Negative (Neg-Trace); Urobilinogen Normal mg/dL (Less than 2)
[2019-05-18 12:42] LABS: Amphetamine Not Detected (NotDetected); Barbiturates Screen Not Detected (NotDetected); Benzodiazepine Screen Not Detected (NotDetected); Cocaine Metabolite Screen Not Detected (NotDetected); Medtox Control Line Valid? VALID (VALID); Medtox Reader # READER 1; Methadone Not Detected (NotDetected); Methamphetamine Not Detected (NotDetected); Opiate Screen Not Detected (NotDetected); Oxycodone Screen Not Detected (NotDetected); Phencyclidine (PCP) Not Detected (NotDetected); THC/Cannabinoid Screen Not Detected (NotDetected); Tricyclic Screen Not Detected (NotDetected)
[2019-05-18 12:52] LABS: Acetaminophen Less than 6.0 mcg/mL (10.0-30.0); Alcohol Less than 10 mg/dL (Less than 10); Salicylate Less than 8.0 mg/dL (15.0-30.0)
[2019-05-18 12:53] LABS: ALT (SGPT) 18 U/L (8-55); AST (SGOT) 17 U/L (5-34); Albumin 3.6 g/dL (3.5-5.0); Alkaline Phosphatase 58 U/L (40-150); Anion Gap 18 mmol/L (10-20); BUN (Urea Nitrogen) 30 mg/dL (8.4-25.7); Bilirubin, Total 0.5 mg/dL (0.2-1.2); CK (CPK) 73 U/L (30-200); Calc. Creatinine Clearance 0 mL/min (70-130); Calcium 9.6 mg/dL (7.8-10.44); Carbon Dioxide 22 mmol/L (22-29); Chloride 94 mmol/L (98-107); Estimated GFR-MDRD 58; Globulin 3.9 g/dL (2.4-3.5); Glucose 468 mg/dL (70-105); Potassium 4.5 mmol/L (3.5-5.1); Protein, Total 7.5 g/dL (6.0-8.3); Sodium 129 mmol/L (136-145)
--- NOTE | 2019-05-18 12:56 | RAD ---
Chest AP view INDICATION: Chest pressure COMPARISON: February 02, 2019 FINDINGS: Lungs:The lungs are clear Cardiac silhouette pulmonary vasculature:The cardiomediastinal silhouette appears within normal limit s. Pleural spaces:No pleural effusion or pneumothorax is demonstrated. Upper abdomen:No abnormality seen. Osseous structures: No acute osseous abnormality. Additional findings:None. IMPRESSION: No acute cardiopulmonary abnormality.
[2019-05-18] MEDS ORDERED: Insulin Regular 300 UNITS/3 ML VIAL ONE (13:33)
[2019-05-18] MEDS ORDERED: Insulin Regular 300 UNITS/3 ML VIAL SC PRN (16:34)
[2019-05-18] MEDS ORDERED: Dextrose 50% Abboject 50 ML SYRINGE SLOW IVP PRN (16:34)
[2019-05-18] MEDS ORDERED: Dextrose 5% in Water 1,000 ML IV PRN (16:34)
[2019-05-18 19:13] LABS: Troponin I 0.029 ng/mL (< 0.028)
[2019-05-18 21:24] VITALS: BMI 24.9
[2019-05-18] MEDS: Insulin Regular 300 UNITS/3 ML VIAL SC PRN (22:16)
[2019-05-19] MEDS ORDERED: Ondansetron ODT 4 MG TAB PO PRN (00:49)
[2019-05-19] MEDS ORDERED: Nitroglycerin 0.4 MG TAB (25 Tab Bottle) SL PRN (00:49)
[2019-05-19] MEDS ORDERED: Acetaminophen 500 MG TAB PO PRN (00:49)
[2019-05-19] MEDS ORDERED: hydrALAZINE 20 MG/ML VIAL SLOW IVP PRN (00:49)
[2019-05-19] MEDS ORDERED: Carvedilol 6.25 MG TAB PO SCH (01:00)
--- NOTE | 2019-05-19 01:37 | HP ---
DATE/TIME OF EVALUATION: 05/18/19, 5:00 p.m. CHIEF COMPLAINT: Chest pain. HISTORY OF PRESENT ILLNESS: The patient is a 58-year-old male with past medical history significant for dilated cardiomyopathy diagnosed in 2012, type 2 diabetes mellitus, hypertension, and hyperlipidemia, who presented to the hospital with a 3-day history of intermittent chest pain. Initially, he described the discomfort as a pressure, it was nonexertional, and associated with some shortness of breath. This tended to come and go. Today, he complains of chest wall discomfort, which seems to be reproducible in the anterior portion of his left chest. His chest discomfort has been nonradiating. He denies any diaphoresis, palpitations, or dizziness associated with the discomfort. On arrival to the ED , lab work notable for a sodium level of 129 and creatinine of 1.52. His troponin has been 0.01, 0.04 and 0.029 respectively. This has been consistent from other visits as well. EKG shows some lateral ischemia. At the time of my interview, the patient is completely chest pain free. He is resting comfortably. The patient has had some suicidal ideation while he has been in the emergency department, and is requiring a sitter. Upon my interview, the patient does say that he has desires to kill himself or do himself harm, but no plan. He has no weapons at this time. He has no homicidal ideations. The patient was admitted in 2012 and diagnosed with dilated cardiomyopathy. He did not undergo left heart catheterization at that time, but did have a nuclear stress test, which showed no evidence of reversible ischemia. His echocardiogram showed EF of 20-25%. He was placed on carvedilol and SERJIO inhibitor at that time, however , has been lost to follow up and been noncompliant with these medications. REVIEW OF SYSTEMS: 12-point review of systems performed and is negative except that stated above. PAST MEDICAL HISTORY: 1. Dilated cardiomyopathy with last EF 20-25%, normal BNP this hospitalization. 2. Type 2 diabetes mellitus, uncontrolled. 3. Dyslipidemia. 4. Hypertension. 5. Depression and anxiety. PAST SURGICAL HISTORY: Negative. PSYCHIATRIC HISTORY: The patient has had a prior suicide attempt in 2014 with an attempt to cut his throat. He does have depression. SOCIAL HISTORY: The patient has no history of tobacco, alcohol use, or recreational drug use. FAMILY HISTORY: Significant for CAD in his mother. ALLERGIES: NO KNOWN DRUG ALLERGIES. CURRENT HOME MEDICATIONS: 1. Citalopram 20 mg daily. 2. Chlorthalidone 25 mg daily. 3. HCTZ 25 mg daily. PHYSICAL EXAMINATION: VITAL SIGNS: Blood pressure 170/90, pulse 68, respirations are 16, O2 saturation is 99% on room air. GENERAL: The patient is a well-appearing male, in no acute distress. HEENT: Head is atraumatic and normocephalic. Mucous membranes are moist. NECK: Trachea is midline. No obvious JVD. CV: S1 and S2. Regular rate and rhythm. No appreciable murmurs, rubs, or gallops. LUNGS: Regular respiratory rate and pattern, overall clear to auscultation bilaterally. ABDOMEN: Positive bowel sounds, soft, nontender. EXTREMITIES: No edema. SKIN: Warm and dry. NEUROLOGIC: Cranial nerves 2 through 12 are grossly intact. The patient is nonfocal. LABORATORY DATA: WBC 6.9, hemoglobin 14.6, hematocrit 47, platelet count is 138. Sodium 129, potassium 4.5, chloride 94, anion gap is 18, BUN 30, creatinine 1.52 , blood glucose is 446. AST, ALT, alkaline phosphatase all within normal limits. Troponin 0.04 and 0.029. Toxicology screen was negative. ASSESSMENT: 1. Chest pain, atypical and typical features in a patient with numerous risk factors. 2. Indeterminate troponin. 3. History of dilated cardiomyopathy with last EF 20-25%, diagnosed in 2012. No cardiac workup since that time. 4. Acute on chronic renal insufficiency Cr 1.52. 5. Type 2 diabetes mellitus, uncontrolled. 6. Hypertension. 7. Suicidal ideation and depression. 8. Hyponatremia in the setting of diuretic use, which is likely contributing, versus heart failure. PLAN: The patient will be admitted to the hospital for further risk stratification. We will reinstate his carvedilol at 6.25 mg b.i.d. and titrate up as tolerated. I will hold off on SERJIO inhibitor at this time given his renal dysfunction. We will obtain 2D echocardiogram in the morning to reassess his ejection fraction. His BNP is completely normal and he had no signs of volume overload at this time. Depending on his EF, if it has improved, would risk stratify with a nuclear stress test, if his EF has worsened, he may need Cardiology consult and left heart catheterization, which I do not believe he has had performed. We will continue aspirin and start statin. We will hold his chlorthalidone and hydrochlorothiazide in light of his hyponatremia and renal function, and no evidence of volume overload at this time. I have put in a consult for [facility] to evaluate the patient also once medically cleared. Further recommendations based on findings of transthoracic echocardiogram tomorrow. Job ID: [id number] [facility]
[2019-05-19 05:39] LABS: #Basophils 0.1 thou/uL (0.0-0.2); #Eosinphils 0.2 thou/uL (0.0-0.7); #Lymphocytes 1.8 thou/uL (1.20-3.40); #Monocytes 0.4 thou/uL (0.11-0.59); #Neutrophils 2.9 thou/uL (1.40-6.50); %Basophils 1.1 % (0.0-1.0); %Eosinophils 3.1 % (0.0-10.0); %Lymphocytes 33.4 % (21.0-51.0); %Monocytes 8.1 % (0.0-10.0); %Neutrophils 54.3 % (42.0-75.0); Hemoglobin 14.4 g/dL (14.0-18.0); Mean Corpuscular HGB CONC 32.3 g/dL (32.0-36.0); Mean Corpuscular Volume 89.8 fL (78.0-98.0); Mean Platelet Volume 10.2 fL (7.4-10.4); Platelet Count 128 thou/uL (130-400); RBC Distribution Width 11.4 % (11.5-14.5); Red Blood Cell (RBC) Count 4.96 mill/uL (4.70-6.10); White Blood Cell (WBC) Count 5.3 thou/uL (4.8-10.8)
[2019-05-19 06:06] LABS: Anion Gap 11 mmol/L (10-20); BUN (Urea Nitrogen) 24 mg/dL (8.4-25.7); Calc. Creatinine Clearance 87 mL/min (70-130); Calcium 9.1 mg/dL (7.8-10.44); Carbon Dioxide 26 mmol/L (22-29); Chloride 100 mmol/L (98-107); Estimated GFR-MDRD 77; Glucose 296 mg/dL (70-105); Potassium 3.8 mmol/L (3.5-5.1); Sodium 133 mmol/L (136-145)
[2019-05-19] MEDS ORDERED: Carvedilol 3.125 MG TAB PO SCH (08:00)
--- NOTE | 2019-05-19 11:07 | PDOC.PN ---
- Subjective Encounter Start Date: 05/19/19 Encounter Start Time: 10:45 Subjective: Patient examined, still reports chest pain - Objective Vital Signs & Weight: Vital Signs (12 hours) Temp Pulse Resp BP BP Pulse Ox 05/19/19 08:23 97.5 F L 57 L 18 127/73 94 L 05/19/19 04:00 97.2 F L 66 16 129/71 97 05/19/19 01:11 177/90 H 05/18/19 23:38 68 170/90 H Weight Weight 87.997 kg I&O: 05/18/19 05/19/19 05/20/19 06:59 06:59 06:59 Intake Total 240 Output Total 400 Balance -160 Result Diagrams: 05/19/19 05:09 05/19/19 05:09 Additional Labs: Accuchecks 05/19/19 05/19/19 05/18/19 10:45 05:10 21:55 POC Glucose 307 H 278 H Greater than 550 H* 05/18/19 11:47 POC Glucose 446 H Phys Exam - Physical Examination HEENT: PERRLA, moist MMs Neck: no nodes, no JVD Respiratory: clear to auscultation bilateral Cardiovascular: RRR Gastrointestinal: soft, non-tender Musculoskeletal: no edema, pulses present Neurological: non-focal, normal sensation Psychiatric: normal affect, A&O x 3 Skin: normal turgor Dx/Plan (1) Atypical chest pain Code(s): R07.89 - OTHER CHEST PAIN Status: Acute (2) DM type 2 (diabetes mellitus, type 2) Status: Chronic (3) HTN (hypertension) Code(s): I10 - ESSENTIAL (PRIMARY) HYPERTENSION Status: Chronic (4) Suicidal ideations Code(s): R45.851 - SUICIDAL IDEATIONS Status: Acute - Plan Echo with 60-65%, stress test ordered -: If negative, will consider medically clearing -: Once medically cleared, will need [facility] evaluation -: Has a sitter at the bedside, will continue to monitor -: Recheck labs in AM, creatinine has improved today * . Review of Systems - Review of Systems Cardiovascular: chest pain Musculoskeletal: Leg Pain (reports chronic left leg pain) - Medications/Allergies Allergies/Adverse Reactions: Allergies Allergy/AdvReac Type Severity Reaction Status Date / Time No Known Drug Allergies Allergy Verified 04/15/13 15:51 Medications: Current Medications Acetaminophen (Tylenol) 1,000 mg PO Q6H PRN PRN Reason: Mild Pain (1-3) Aspirin (Ecotrin) 81 mg PO DAILY [facility] Carvedilol (Coreg) 6.25 mg PO BID-[facility]ELIPE Citalopram Hydrobromide (Celexa) 20 mg PO DAILY [facility] Dextrose/Water (Dextrose 50%) 25 gm SLOW IVP PRN PRN PRN Reason: Hypoglycemia Glucagon (Glucagon) 1 mg IM PRN PRN PRN Reason: Hypoglycemia Hydralazine HCl (Apresoline) 10 mg SLOW IVP Q4H PRN PRN Reason: SBP > 180 and HR < 70 Dextrose/Water (D5w) 1,000 mls @ 0 mls/hr IV .Q0M PRN PRN Reason: Hypoglycemia Insulin Human Regular (Humulin R) 0 units SC .MODERATE SLIDING SC PRN PRN Reason: Moderate Correctional Scale Last Admin: 05/18/19 22:16 Dose: 10 unit Insulin Human Regular (Humulin R) 0 units SC .BEDTIME SLIDING SC PRN PRN Reason: Bedtime Correctional Scale Nitroglycerin (Nitrostat) 0.4 mg SL Q5MIN PRN PRN Reason: Chest Pain Ondansetron HCl (Zofran Odt) 4 mg PO Q6H PRN PRN Reason: Nausea/Vomiting
--- NOTE | 2019-05-19 15:33 | NM ---
EXAM: CARDIAC SPECT HISTORY: Chest pain, cardiomyopathy, CHF, hypertension, diabetes, dyslipidemia TECHNIQUE: A myocardial perfusion scan was performed using the single isotope 1 day protocol with pako hnetium 99m sestamibi. [10 mCi] was injected intravenously for the rest exam followed by 30 mCi for the stress study. Pharmacologic stress with adenosine was monitored and interpreted by Dr. Rene FINDINGS: Homogeneous tracer distribution is seen in the myocardial segments on stress and rest image s without fixed or reversible defects. Gated SPECT LVEF: 64% Wall motion exam: Normal IMPRESSION: Normal myocardial perfusion scan
[2019-05-19] MEDS: Citalopram 20 MG TAB PO SCH (17:03)
[2019-05-19] MEDS: Carvedilol 6.25 MG TAB PO SCH ×2 (17:03)
[2019-05-19] MEDS: Aspirin 81 mg Enteric Coated Tablet PO SCH (17:04)
[2019-05-19] MEDS: Insulin Regular 300 UNITS/3 ML VIAL SC PRN ×2 (17:14→21:57)
[2019-05-20] MEDS: Aspirin 81 mg Enteric Coated Tablet PO SCH (08:47)
[2019-05-20] MEDS: Carvedilol 6.25 MG TAB PO SCH (08:48)
[2019-05-20] MEDS: Citalopram 20 MG TAB PO SCH (08:48)
[2019-05-20] MEDS: Insulin Regular 300 UNITS/3 ML VIAL SC PRN (12:14)
[2019-05-20 12:22] VITALS: BP 101/58; TEMP 97.9
[2019-05-20] MEDS ORDERED: ADENOSINE 60 MG/20 ML VIAL ONE (12:34)
--- NOTE | 2019-05-21 00:31 | DIS ---
DATE OF ADMISSION: 05/18/2019 DATE OF DISCHARGE: 05/20/2019 DISCHARGE DIAGNOSES: 1. Chest pain. 2. Suicidal ideation. 3. History of nonischemic cardiomyopathy (resolved). 4. Diabetes mellitus. 5. Hypertension. HISTORY OF PRESENT ILLNESS: This patient is a 58-year-old male, who presented to the emergency department reporting chest pain. This patient had a history of nonischemic cardiomyopathy with an ejection fraction of 20% in 2013, documented by echocardiogram. The patient did not have heart catheterization at that time and had not followed up. The patient was noted to have negative initial workup. HOSPITAL COURSE: The patient was admitted to the hospital and telemetry monitoring into observation. He was monitored with serial troponins, which remained negative. He also had an echocardiogram, which remarkably showed complete resolution of the cardiomyopathy and a return of normal ejection fraction of 60% to 65%. He then underwent a nuclear medicine stress test, which was unremarkable with no evidence of ischemia and EF of 64%. With that, the patient was felt to be medically stable. However, the patient had indicated on his presentation that he had suicidal ideations, although he had no plan. Once he was cleared medically, he was seen by [facility], who felt the patient was suffering more from a situational problem than true suicidality. The patient indicated he had some falling out with his brother and [facility]. He did however have a voucher for housing through Medicaid and [facility] business services sales representative indicated that they would be able to help him with that housing and that apparently changed the patient's countenance significantly on my exam and followup. The patient was hopeful about his future. I discussed this with the [facility] business services sales representative and we were comfortable discharging the patient. She will follow up and devise a safety plan for him. PHYSICAL EXAMINATION: VITAL SIGNS: On the day of discharge, temperature is 97.9, pulse 65, respirations 18, O2 saturation 94%, BP is 101/58. GENERAL APPEARANCE: The patient is awake, alert, oriented, pleasant, and cooperative. HEART: Regular rate and rhythm without murmurs, gallops, or rubs. LUNGS: Clear. ABDOMEN: Benign. EXTREMITIES: Reveal no cyanosis, clubbing, or edema. MUSCULOSKELETAL: Does reveal tenderness to palpation in the left chest laterally near the shoulder at the insertion of the pectoralis muscle. DISPOSITION: The patient is discharged to home. ACTIVITY: As tolerated. DIET: He will be on a heart healthy diabetic diet. DISCHARGE MEDICATIONS: 1. Simvastatin 40 mg p.o. at bedtime. 2. Hydrochlorothiazide 25 mg p.o. daily. 3. Chlorthalidone 25 mg daily. 4. Celexa 20 mg daily. 5. Insulin Levemir 100 units, continue his home regimen. 6. Carvedilol 1.5625 p.o. b.i.d. FOLLOWUP: He is to follow up with Zuleima Campos on 05/24/2019 at 10:00 a.m., and he will follow up with [facility] as well. He can return to the hospital at any time should the need arise. Job ID: [id number]
--- NOTE | 2019-05-21 17:01 | EKG ---
Test Reason : CHEST PAIN Blood Pressure : / mmHG Vent. Rate : 074 BPM Atrial Rate : 074 BPM P-R Int : 126 ms QRS Dur : 088 ms QT Int : 422 ms P-R-T Axes : 051 005 026 degrees QTc Int : 468 ms Normal sinus rhythm Nonspecific T wave abnormality Prolonged QT Abnormal ECG Lateral ST-T wave abnormalities seen on old EKG from 02/02/2019 Confirmed by SHARONDA PEREZ ([id number]), fashion editor CAPRICE LEA ([id number]) on 05/21/2019 5:00:55 PM Referred By: Confirmed By:SHARONDA PEREZ
== END 2019-05-20 13:57 | disposition home or self-care (01) ==
LOC: ERS 11:35 → ERHOLD 14:35 → 2NO 21:18
PROVIDERS: ADMIT Internal Medicine; ATTEND Internal Medicine
DX: R07.89 Other chest pain (principal); I12.9 Hypertensive chronic kidney disease with stage 1 through stage 4 chronic kidney disease, or unspecified chronic kidney disease; E11.22 Type 2 diabetes mellitus with diabetic chronic kidney disease; N18.9 Chronic kidney disease, unspecified; N17.9 Acute kidney failure, unspecified; E78.5 Hyperlipidemia, unspecified; F41.8 Other specified anxiety disorders; F32.9 Major depressive disorder, single episode, unspecified; R45.851 Suicidal ideations; Z79.899 Other long term (current) drug therapy; E87.1 Hypo-osmolality and hyponatremia
CPT/HCPCS: 36415; 36416; 71045; 78452; 80048; 80053; 80306; 80307; 81003; 82550; 83880; 84443; 84484; 85025; 87086; 93005; 93017; 93306; 94760; 96361; 96374; A9500; G0378; J0153; J1815; J1885

== ENCOUNTER 2022-02-27 07:14 | Inpatient (IN) | payer MEDICARE, MEDICAID ==
[2022-02-27] MEDS ORDERED: Furosemide 40 MG/4 ML VIAL ONE (08:40)
[2022-02-27] MEDS ORDERED: Nitroglycerin 2% Ointment 1 INCH/1 GM Packet ONE (08:40)
[2022-02-27] MEDS ORDERED: Aspirin Chewable 81 MG TAB ONE (08:41)
[2022-02-27 08:50] LABS: #Eosinphils 0.3 thou/uL (0.0-0.7); #Lymphocytes 1.4 thou/uL (1.20-3.40); #Monocytes 0.6 thou/uL (0.11-0.59); #Neutrophils 3.7 thou/uL (1.40-6.50); %Basophils 0.7 % (0.0-1.0); %Eosinophils 5.5 % (0.0-10.0); %Lymphocytes 22.7 % (21.0-51.0); %Monocytes 10.4 % (0.0-10.0); %Neutrophils 60.7 % (42.0-75.0); Hemoglobin 13.1 g/dL (14.0-18.0); Mean Corpuscular HGB CONC 33.4 g/dL (32.0-36.0); Mean Corpuscular Hemoglobin 31.1 pg (27.0-31.0); Mean Platelet Volume 9.3 fL (7.4-10.4); Platelet Count 173 thou/uL (130-400); RBC Distribution Width 12.6 % (11.5-14.5); Red Blood Cell (RBC) Count 4.23 mill/uL (4.70-6.10); White Blood Cell (WBC) Count 6.2 thou/uL (4.8-10.8)
[2022-02-27 09:13] LABS: ALT (SGPT) 16 U/L (8-55); AST (SGOT) 19 U/L (5-34); Albumin 2.9 g/dL (3.5-5.0); Alkaline Phosphatase 76 U/L (40-110); Anion Gap 14 mmol/L (10-20); BUN (Urea Nitrogen) 30 mg/dL (8.4-25.7); Bilirubin, Total 0.4 mg/dL (0.2-1.2); CK (CPK) 389 U/L (30-200); Calc. Creatinine Clearance 0 mL/min (70-130); Calcium 8.3 mg/dL (7.8-10.44); Carbon Dioxide 19 mmol/L (22-29); Chloride 110 mmol/L (98-107); Globulin 3.4 g/dL (2.4-3.5); Glucose 145 mg/dL (70-105); Lipase 12 U/L (8-78); Potassium 3.7 mmol/L (3.5-5.1); Protein, Total 6.3 g/dL (6.0-8.3); Sodium 139 mmol/L (136-145)
[2022-02-27 09:30] LABS: CKMB 2.7 ng/mL (0-6.6)
[2022-02-27] MEDS ORDERED: niCARdipine 25 MG in Sodium Chloride 0.9% 250 ML 250 ML IVPB SCH (10:15)
[2022-02-27] MEDS ORDERED: Acetaminophen 325 MG TAB PO PRN (10:37)
[2022-02-27] MEDS ORDERED: Bisacodyl 5 MG TAB PO PRN (10:37)
[2022-02-27] MEDS ORDERED: Acetaminophen 650 MG Suppository PR PRN (10:37)
[2022-02-27] MEDS ORDERED: Dextrose 50% Abboject 50 ML SYRINGE SLOW IVP PRN (11:13)
[2022-02-27] MEDS ORDERED: Dextrose 5% in Water 1,000 ML IV PRN (11:13)
[2022-02-27 11:21] LABS: Magnesium 2.3 mg/dL (1.6-2.6)
[2022-02-27 12:32] LABS: Troponin I 0.055 ng/mL (< 0.028)
[2022-02-27] MEDS ORDERED: hydrALAZINE 20 MG/ML VIAL SLOW IVP PRN (13:31)
[2022-02-27 13:34] VITALS: BMI 27.8
[2022-02-27] MEDS ORDERED: Heparin 5,000 UNITS/ML VIAL SC SCH (15:00)
[2022-02-27 15:58] LABS: Troponin I 0.041 ng/mL (< 0.028)
[2022-02-27] MEDS: HumaLOG 300 UNITS/3 ML VIAL SC PRN ×2 (17:55→21:29)
[2022-02-27] MEDS ORDERED: Furosemide 40 MG/4 ML VIAL SLOW IVP SCH (18:00)
[2022-02-27] MEDS: hydrALAZINE 25 MG TAB PO SCH (21:27)
[2022-02-27 23:17] LABS: SARS-CoV-2 PCR by NAA Not Detected (NotDetected)
[2022-02-28 04:28] LABS: #Eosinphils 0.3 thou/uL (0.0-0.7); #Lymphocytes 1.8 thou/uL (1.20-3.40); #Monocytes 0.6 thou/uL (0.11-0.59); #Neutrophils 3.4 thou/uL (1.40-6.50); %Basophils 0.7 % (0.0-1.0); %Eosinophils 4.8 % (0.0-10.0); %Lymphocytes 29.3 % (21.0-51.0); %Monocytes 9.9 % (0.0-10.0); %Neutrophils 55.3 % (42.0-75.0); Hemoglobin 12.9 g/dL (14.0-18.0); Mean Corpuscular HGB CONC 31.9 g/dL (32.0-36.0); Mean Corpuscular Hemoglobin 30.4 pg (27.0-31.0); Mean Corpuscular Volume 95.3 fL (78.0-98.0); Mean Platelet Volume 8.9 fL (7.4-10.4); Platelet Count 170 thou/uL (130-400); RBC Distribution Width 12.5 % (11.5-14.5); Red Blood Cell (RBC) Count 4.25 mill/uL (4.70-6.10); White Blood Cell (WBC) Count 6.1 thou/uL (4.8-10.8)
[2022-02-28 04:51] LABS: ALT (SGPT) 13 U/L (8-55); AST (SGOT) 15 U/L (5-34); Albumin 2.6 g/dL (3.5-5.0); Alkaline Phosphatase 67 U/L (40-110); Anion Gap 12 mmol/L (10-20); BUN (Urea Nitrogen) 27 mg/dL (8.4-25.7); Bilirubin, Total 0.4 mg/dL (0.2-1.2); Calc. Creatinine Clearance 71 mL/min (70-130); Calcium 8.5 mg/dL (7.8-10.44); Carbon Dioxide 20 mmol/L (22-29); Chloride 109 mmol/L (98-107); Glucose 225 mg/dL (70-105); Potassium 3.9 mmol/L (3.5-5.1); Protein, Total 5.6 g/dL (6.0-8.3); Sodium 137 mmol/L (136-145)
[2022-02-28] MEDS: Furosemide 40 MG/4 ML VIAL SLOW IVP SCH ×2 (05:56→15:05)
[2022-02-28] MEDS: HumaLOG 300 UNITS/3 ML VIAL SC PRN ×3 (06:00→17:26)
[2022-02-28] MEDS ORDERED: Furosemide 40 MG/4 ML VIAL SLOW IVP SCH (09:00)
[2022-02-28] MEDS: Aspirin 81 mg Enteric Coated Tablet PO SCH (09:26)
[2022-02-28] MEDS: hydrALAZINE 25 MG TAB PO SCH ×2 (09:26→20:48)
[2022-02-28] MEDS: Enoxaparin Sodium 40 MG/0.4 ML SYRINGE SC SCH (09:27)
[2022-02-28] MEDS ORDERED: NPH, Human Insulin Isophane 300 UNIT/3 ML VIAL SC SCH (17:00)
[2022-02-28] MEDS ORDERED: Insulin Glargine 30 UNITS/0.3 ML VIAL SC SCH (17:15)
[2022-02-28] MEDS: Isosorbide Dinitrate 5 MG TAB PO SCH (20:49)
[2022-02-28] MEDS: Senokot S 8.6-50 MG TAB PO PRN (20:49)
[2022-03-01 04:44] LABS: #Eosinphils 0.3 thou/uL (0.0-0.7); #Lymphocytes 1.5 thou/uL (1.20-3.40); #Monocytes 0.6 thou/uL (0.11-0.59); #Neutrophils 3.1 thou/uL (1.40-6.50); %Basophils 0.7 % (0.0-1.0); %Eosinophils 5.6 % (0.0-10.0); %Lymphocytes 26.4 % (21.0-51.0); %Monocytes 11.2 % (0.0-10.0); %Neutrophils 56.2 % (42.0-75.0); Hemoglobin 13.7 g/dL (14.0-18.0); Mean Corpuscular HGB CONC 32.9 g/dL (32.0-36.0); Mean Corpuscular Hemoglobin 30.7 pg (27.0-31.0); Mean Corpuscular Volume 93.3 fL (78.0-98.0); Mean Platelet Volume 8.9 fL (7.4-10.4); Platelet Count 157 thou/uL (130-400); RBC Distribution Width 12.3 % (11.5-14.5); Red Blood Cell (RBC) Count 4.46 mill/uL (4.70-6.10); White Blood Cell (WBC) Count 5.5 thou/uL (4.8-10.8)
[2022-03-01 05:07] LABS: Albumin 2.5 g/dL (3.5-5.0); Anion Gap 12 mmol/L (10-20); BUN (Urea Nitrogen) 26 mg/dL (8.4-25.7); BUN/Creatinine Ratio 17.93; Calc. Creatinine Clearance 80 mL/min (70-130); Calcium 8.4 mg/dL (7.8-10.44); Carbon Dioxide 25 mmol/L (22-29); Chloride 106 mmol/L (98-107); Glucose 173 mg/dL (70-105); Magnesium 1.7 mg/dL (1.6-2.6); Phosphorus 4.1 mg/dL (2.3-4.7); Potassium 3.7 mmol/L (3.5-5.1); Sodium 139 mmol/L (136-145)
[2022-03-01] MEDS: HumaLOG 300 UNITS/3 ML VIAL SC PRN ×3 (06:08→21:03)
[2022-03-01] MEDS: Furosemide 40 MG/4 ML VIAL SLOW IVP SCH ×2 (06:08→13:44)
[2022-03-01] MEDS: Isosorbide Dinitrate 5 MG TAB PO SCH ×2 (09:23→21:02)
[2022-03-01] MEDS: hydrALAZINE 25 MG TAB PO SCH ×2 (09:23→21:02)
[2022-03-01] MEDS: Insulin Glargine 30 UNITS/0.3 ML VIAL SC SCH (09:24)
[2022-03-01] MEDS: Aspirin 81 mg Enteric Coated Tablet PO SCH (09:25)
[2022-03-01] MEDS: Enoxaparin Sodium 40 MG/0.4 ML SYRINGE SC SCH (09:25)
[2022-03-01] MEDS ORDERED: cloNIDine 0.1 MG TAB PO PRN (20:01)
[2022-03-01] MEDS: Gabapentin 300 MG CAP PO PRN (21:02)
[2022-03-02 04:22] LABS: #Eosinphils 0.3 thou/uL (0.0-0.7); #Lymphocytes 1.2 thou/uL (1.20-3.40); #Monocytes 0.5 thou/uL (0.11-0.59); #Neutrophils 2.7 thou/uL (1.40-6.50); %Basophils 0.8 % (0.0-1.0); %Eosinophils 6.1 % (0.0-10.0); %Lymphocytes 25.5 % (21.0-51.0); %Monocytes 10.9 % (0.0-10.0); %Neutrophils 56.8 % (42.0-75.0); Mean Corpuscular HGB CONC 32.8 g/dL (32.0-36.0); Mean Corpuscular Hemoglobin 30.4 pg (27.0-31.0); Mean Corpuscular Volume 92.6 fL (78.0-98.0); Mean Platelet Volume 8.6 fL (7.4-10.4); Platelet Count 156 thou/uL (130-400); RBC Distribution Width 12.2 % (11.5-14.5); White Blood Cell (WBC) Count 4.8 thou/uL (4.8-10.8)
[2022-03-02 04:41] LABS: Anion Gap 12 mmol/L (10-20); BUN (Urea Nitrogen) 22 mg/dL (8.4-25.7); Calc. Creatinine Clearance 74 mL/min (70-130); Calcium 8.3 mg/dL (7.8-10.44); Carbon Dioxide 23 mmol/L (22-29); Chloride 108 mmol/L (98-107); Glucose 215 mg/dL (70-105); Potassium 3.6 mmol/L (3.5-5.1); Sodium 139 mmol/L (136-145)
[2022-03-02] MEDS: HumaLOG 300 UNITS/3 ML VIAL SC PRN ×3 (06:15→21:05)
[2022-03-02] MEDS: Furosemide 40 MG/4 ML VIAL SLOW IVP SCH ×2 (06:15→14:30)
[2022-03-02] MEDS: Isosorbide Dinitrate 5 MG TAB PO SCH ×2 (10:25→21:04)
[2022-03-02] MEDS: Insulin Glargine 30 UNITS/0.3 ML VIAL SC SCH (10:25)
[2022-03-02] MEDS: Senokot S 8.6-50 MG TAB PO PRN (10:25)
[2022-03-02] MEDS: Aspirin 81 mg Enteric Coated Tablet PO SCH (10:25)
[2022-03-02] MEDS: Enoxaparin Sodium 40 MG/0.4 ML SYRINGE SC SCH (10:25)
[2022-03-02] MEDS: hydrALAZINE 25 MG TAB PO SCH ×2 (10:26→21:04)
[2022-03-02] MEDS: Gabapentin 300 MG CAP PO PRN (21:04)
[2022-03-03 05:12] LABS: Anion Gap 13 mmol/L (10-20); BUN (Urea Nitrogen) 24 mg/dL (8.4-25.7); Calc. Creatinine Clearance 76 mL/min (70-130); Calcium 8.2 mg/dL (7.8-10.44); Carbon Dioxide 21 mmol/L (22-29); Chloride 109 mmol/L (98-107); Glucose 139 mg/dL (70-105); Potassium 3.5 mmol/L (3.5-5.1); Sodium 139 mmol/L (136-145)
[2022-03-03] MEDS: Furosemide 40 MG/4 ML VIAL SLOW IVP SCH ×2 (05:38→13:49)
[2022-03-03 07:09] LABS: #Basophils 0.1 thou/uL (0.0-0.2); #Eosinphils 0.4 thou/uL (0.0-0.7); #Lymphocytes 1.7 thou/uL (1.20-3.40); #Monocytes 0.7 thou/uL (0.11-0.59); #Neutrophils 3.1 thou/uL (1.40-6.50); %Basophils 1.1 % (0.0-1.0); %Eosinophils 6.5 % (0.0-10.0); %Lymphocytes 28.2 % (21.0-51.0); %Monocytes 11.8 % (0.0-10.0); %Neutrophils 52.3 % (42.0-75.0); Hemoglobin 14.9 g/dL (14.0-18.0); Mean Corpuscular HGB CONC 32.9 g/dL (32.0-36.0); Mean Corpuscular Hemoglobin 30.6 pg (27.0-31.0); Mean Corpuscular Volume 93.1 fL (78.0-98.0); Mean Platelet Volume 8.8 fL (7.4-10.4); Platelet Count 176 thou/uL (130-400); RBC Distribution Width 12.2 % (11.5-14.5); Red Blood Cell (RBC) Count 4.85 mill/uL (4.70-6.10); White Blood Cell (WBC) Count 5.8 thou/uL (4.8-10.8)
[2022-03-03] MEDS ORDERED: Insulin Glargine 30 UNITS/0.3 ML VIAL SC SCH (09:00)
[2022-03-03] MEDS: Enoxaparin Sodium 40 MG/0.4 ML SYRINGE SC SCH (09:20)
[2022-03-03] MEDS: Isosorbide Dinitrate 5 MG TAB PO SCH (09:21)
[2022-03-03] MEDS: Aspirin 81 mg Enteric Coated Tablet PO SCH (09:21)
[2022-03-03] MEDS: hydrALAZINE 25 MG TAB PO SCH (09:21)
[2022-03-03 12:11] VITALS: BP 136/83; TEMP 98.6
[2022-03-03] MEDS: HumaLOG 300 UNITS/3 ML VIAL SC PRN (14:05)
== END 2022-03-03 16:00 | disposition home or self-care (01) | DRG 291 ==
LOC: ERS 07:14 → 2NO 10:11
PROVIDERS: ADMIT Internal Medicine; ATTEND Internal Medicine
DX: I13.0 Hypertensive heart and chronic kidney disease with heart failure and stage 1 through stage 4 chronic kidney disease, or unspecified chronic kidney disease (principal); I50.43 Acute on chronic combined systolic (congestive) and diastolic (congestive) heart failure; I16.1 Hypertensive emergency; Z20.822 Contact with and (suspected) exposure to COVID-19; F10.10 Alcohol abuse, uncomplicated; F12.10 Cannabis abuse, uncomplicated; N18.2 Chronic kidney disease, stage 2 (mild); E88.09 Other disorders of plasma-protein metabolism, not elsewhere classified; E11.22 Type 2 diabetes mellitus with diabetic chronic kidney disease; E78.5 Hyperlipidemia, unspecified; E78.00 Pure hypercholesterolemia, unspecified; F32.A Depression, unspecified; I08.3 Combined rheumatic disorders of mitral, aortic and tricuspid valves; I42.8 Other cardiomyopathies; E11.40 Type 2 diabetes mellitus with diabetic neuropathy, unspecified; Z91.14 Patient's other noncompliance with medication regimen; Z91.51 Personal history of suicidal behavior; Z79.899 Other long term (current) drug therapy; Z79.4 Long term (current) use of insulin; Z87.891 Personal history of nicotine dependence
CPT/HCPCS: 36415; 36416; 71045; 80048; 80053; 80069; 82550; 82553; 83690; 83735; 83880; 84443; 84484; 85025; 93005; 93306; 96374; 97139; J0360; J1650; J1815; J1940; J7050; U0003; U0005

== ENCOUNTER 2022-07-22 18:31 | Emergency (ER) | payer MEDICARE, OTHER ==
[2022-07-22 19:12] LABS: #Eosinphils 0.2 thou/uL (0.0-0.7); #Lymphocytes 1.4 thou/uL (1.20-3.40); #Monocytes 0.5 thou/uL (0.11-0.59); #Neutrophils 4.3 thou/uL (1.40-6.50); %Basophils 0.6 % (0.0-1.0); %Eosinophils 3.9 % (0.0-10.0); %Lymphocytes 21.4 % (21.0-51.0); %Monocytes 7.3 % (0.0-10.0); %Neutrophils 66.9 % (42.0-75.0); Hemoglobin 12.7 g/dL (14.0-18.0); Mean Corpuscular HGB CONC 32.5 g/dL (32.0-36.0); Mean Corpuscular Hemoglobin 30.3 pg (27.0-31.0); Mean Corpuscular Volume 93.1 fL (78.0-98.0); Mean Platelet Volume 8.7 fL (7.4-10.4); Platelet Count 185 thou/uL (130-400); RBC Distribution Width 13.4 % (11.5-14.5); Red Blood Cell (RBC) Count 4.21 mill/uL (4.70-6.10); White Blood Cell (WBC) Count 6.4 thou/uL (4.8-10.8)
[2022-07-22 19:27] LABS: ALT (SGPT) 16 U/L (8-55); AST (SGOT) 19 U/L (5-34); Albumin 2.6 g/dL (3.5-5.0); Alkaline Phosphatase 61 U/L (40-110); Anion Gap 14 mmol/L (10-20); BUN (Urea Nitrogen) 35 mg/dL (8.4-25.7); Bilirubin, Total 0.3 mg/dL (0.2-1.2); Calc. Creatinine Clearance 0 mL/min (70-130); Calcium 8.1 mg/dL (7.8-10.44); Carbon Dioxide 19 mmol/L (22-29); Chloride 109 mmol/L (98-107); Estimated GFR 39; Glucose 258 mg/dL (70-105); Lipase 23 U/L (8-78); Magnesium 2.1 mg/dL (1.6-2.6); Potassium 4.7 mmol/L (3.5-5.1); Protein, Total 5.6 g/dL (6.0-8.3); Sodium 137 mmol/L (136-145)
[2022-07-22] MEDS ORDERED: Furosemide 40 MG/4 ML VIAL ONE (19:41)
[2022-07-22] MEDS ORDERED: Furosemide 20 MG/2 ML VIAL ONE (19:41)
[2022-07-22 19:45] LABS: CKMB 4.7 ng/mL (0-6.6)
== END 2022-07-22 21:48 | disposition home or self-care (01) ==
LOC: ERS 18:31
DX: I11.0 Hypertensive heart disease with heart failure (principal); I50.1 Left ventricular failure, unspecified; E11.9 Type 2 diabetes mellitus without complications; E78.00 Pure hypercholesterolemia, unspecified; F17.210 Nicotine dependence, cigarettes, uncomplicated; Z79.4 Long term (current) use of insulin
CPT/HCPCS: 36415; 71045; 80053; 82553; 83690; 83735; 83880; 84484; 85025; 93005; 96374; J1940

== ENCOUNTER 2022-08-11 16:28 | Inpatient (IN) | payer MEDICARE, MEDICAID ==
[2022-08-11 17:17] LABS: Bacteria/HPF None Seen HPF (None Seen); Bilirubin Negative (Negative); Blood, Urine 1+ (Negative); Clarity Clear (Clear); Glucose, Urine (Dipstick) Normal (Negative); Ketone, Urine Negative (Negative); Leukocyte Negative Leu/uL (Negative); Nitrite Negative (Negative); Protein, Urine (Dipstick) 100 mg/dL (Neg-Trace); Specific Gravity, Urine 1.009 (1.002-1.036); Squamous Epithelial 0-3 HPF (0-3); Urobilinogen Normal mg/dL (Less than 2); WBC/HPF 0-3 HPF (0-3); pH, Urine 5.5 (5.0-9.0)
[2022-08-11] MEDS ORDERED: hydrALAZINE 20 MG/ML VIAL ONE ×2 (17:40→19:40)
[2022-08-11 18:27] LABS: #Eosinphils 0.1 thou/uL (0.0-0.7); #Lymphocytes 0.6 thou/uL (1.20-3.40); #Monocytes 0.3 thou/uL (0.11-0.59); #Neutrophils 12.5 thou/uL (1.40-6.50); %Basophils 0.2 % (0.0-1.0); %Eosinophils 0.4 % (0.0-10.0); %Lymphocytes 4.4 % (21.0-51.0); %Monocytes 2.4 % (0.0-10.0); %Neutrophils 92.6 % (42.0-75.0); Hemoglobin 15.6 g/dL (14.0-18.0); Mean Corpuscular HGB CONC 30.6 g/dL (32.0-36.0); Mean Corpuscular Hemoglobin 29.1 pg (27.0-31.0); Platelet Count 213 thou/uL (130-400); RBC Distribution Width 12.7 % (11.5-14.5); Red Blood Cell (RBC) Count 5.35 mill/uL (4.70-6.10); White Blood Cell (WBC) Count 13.5 thou/uL (4.8-10.8)
[2022-08-11 18:52] LABS: ALT (SGPT) 21 U/L (8-55); AST (SGOT) 33 U/L (5-34); Albumin 3.2 g/dL (3.5-5.0); Alkaline Phosphatase 76 U/L (40-110); Anion Gap 14 mmol/L (10-20); BUN (Urea Nitrogen) 28 mg/dL (8.4-25.7); Bilirubin, Total 0.3 mg/dL (0.2-1.2); Calc. Creatinine Clearance 0 mL/min (70-130); Calcium 8.5 mg/dL (7.8-10.44); Carbon Dioxide 25 mmol/L (22-29); Chloride 104 mmol/L (98-107); Estimated GFR 46; Globulin 3.7 g/dL (2.4-3.5); Glucose 144 mg/dL (70-105); Potassium 4.5 mmol/L (3.5-5.1); Protein, Total 6.9 g/dL (6.0-8.3); Sodium 138 mmol/L (136-145)
[2022-08-11 19:12] LABS: CKMB 6.6 ng/mL (0-6.6)
[2022-08-11] MEDS ORDERED: Aspirin Chewable 81 MG TAB ONE (19:39)
[2022-08-11] MEDS ORDERED: Nitroglycerin 2% Ointment 1 INCH/1 GM Packet ONE (19:39)
[2022-08-11] MEDS ORDERED: Dextrose 50% Abboject 50 ML SYRINGE SLOW IVP PRN (20:33)
[2022-08-11] MEDS ORDERED: hydrALAZINE 20 MG/ML VIAL SLOW IVP PRN (20:33)
[2022-08-11] MEDS ORDERED: Dextrose 5% in Water 1,000 ML IV PRN (20:33)
[2022-08-11] MEDS ORDERED: HumaLOG 300 UNITS/3 ML VIAL SC PRN ×2 (20:33)
[2022-08-11 22:37] LABS: CKMB 4.9 ng/mL (0-6.6)
[2022-08-12 00:22] LABS: SARS-CoV-2 NAA Rapid Test Not Detected (NotDetected)
[2022-08-12 01:58] LABS: CKMB 5.5 ng/mL (0-6.6)
[2022-08-12 04:31] VITALS: BMI 32.4
[2022-08-12 05:18] LABS: #Eosinphils 0.1 thou/uL (0.0-0.7); #Lymphocytes 1.2 thou/uL (1.20-3.40); #Monocytes 0.8 thou/uL (0.11-0.59); #Neutrophils 4.9 thou/uL (1.40-6.50); %Basophils 0.6 % (0.0-1.0); %Eosinophils 1.8 % (0.0-10.0); %Lymphocytes 16.7 % (21.0-51.0); %Monocytes 11.1 % (0.0-10.0); %Neutrophils 69.8 % (42.0-75.0); Hemoglobin 12.3 g/dL (14.0-18.0); Mean Corpuscular HGB CONC 31.6 g/dL (32.0-36.0); Mean Corpuscular Hemoglobin 29.5 pg (27.0-31.0); Mean Corpuscular Volume 93.4 fL (78.0-98.0); Mean Platelet Volume 9.1 fL (7.4-10.4); Platelet Count 181 thou/uL (130-400); RBC Distribution Width 12.6 % (11.5-14.5); Red Blood Cell (RBC) Count 4.17 mill/uL (4.70-6.10)
[2022-08-12 05:37] LABS: Anion Gap 10 mmol/L (10-20); BUN (Urea Nitrogen) 33 mg/dL (8.4-25.7); Calc. Creatinine Clearance 80 mL/min (70-130); Calcium 7.6 mg/dL (7.8-10.44); Carbon Dioxide 23 mmol/L (22-29); Chloride 108 mmol/L (98-107); Estimated GFR 49; Glucose 168 mg/dL (70-105); Potassium 3.7 mmol/L (3.5-5.1); Sodium 137 mmol/L (136-145)
[2022-08-12] MEDS: Acetaminophen 325 MG TAB PO PRN (09:32)
[2022-08-12] MEDS: Furosemide 40 MG TAB PO SCH (09:32)
[2022-08-12] MEDS: Senokot S 8.6-50 MG TAB PO SCH ×2 (09:32→21:02)
[2022-08-12] MEDS: Insulin Glargine 30 UNITS/0.3 ML VIAL SC SCH (21:02)
[2022-08-12] MEDS: hydrALAZINE 25 MG TAB PO SCH (21:02)
[2022-08-13 05:14] LABS: Anion Gap 11 mmol/L (10-20); BUN (Urea Nitrogen) 26 mg/dL (8.4-25.7); Calc. Creatinine Clearance 82 mL/min (70-130); Carbon Dioxide 25 mmol/L (22-29); Chloride 109 mmol/L (98-107); Estimated GFR 50; Glucose 146 mg/dL (70-105); Sodium 141 mmol/L (136-145)
[2022-08-13 05:28] LABS: #Eosinphils 0.3 thou/uL (0.0-0.7); #Lymphocytes 1.7 thou/uL (1.20-3.40); #Monocytes 0.7 thou/uL (0.11-0.59); #Neutrophils 4.2 thou/uL (1.40-6.50); %Basophils 0.7 % (0.0-1.0); %Eosinophils 4.7 % (0.0-10.0); %Lymphocytes 24.7 % (21.0-51.0); %Monocytes 9.7 % (0.0-10.0); %Neutrophils 60.2 % (42.0-75.0); Hemoglobin 13.6 g/dL (14.0-18.0); Mean Corpuscular Hemoglobin 30.1 pg (27.0-31.0); Mean Platelet Volume 9.4 fL (7.4-10.4); Platelet Count 186 thou/uL (130-400); RBC Distribution Width 12.6 % (11.5-14.5)
[2022-08-13] MEDS ORDERED: HumuLIN 70/30 (300 UNITS/3 ML VIAL) SC SCH (07:30)
[2022-08-13] MEDS ORDERED: Amlodipine 5 MG TAB PO SCH ×2 (09:00)
[2022-08-13] MEDS: Furosemide 40 MG TAB PO SCH (09:34)
[2022-08-13] MEDS: Amlodipine 10 MG TAB PO SCH (09:34)
[2022-08-13] MEDS: hydrALAZINE 25 MG TAB PO SCH ×2 (09:35→21:15)
[2022-08-13] MEDS: Senokot S 8.6-50 MG TAB PO SCH ×2 (09:36→21:15)
[2022-08-13] MEDS: Thiamine 100 MG TAB PO SCH (09:36)
[2022-08-13] MEDS: hydrALAZINE 20 MG/ML VIAL SLOW IVP PRN (12:47)
[2022-08-13] MEDS ORDERED: Labetalol HCl 100 MG/20 ML VIAL SLOW IVP SCH (13:39)
[2022-08-13] MEDS: Insulin Glargine 30 UNITS/0.3 ML VIAL SC SCH (21:15)
[2022-08-14 05:22] LABS: #Eosinphils 0.3 thou/uL (0.0-0.7); #Lymphocytes 1.3 thou/uL (1.20-3.40); #Monocytes 0.7 thou/uL (0.11-0.59); #Neutrophils 4.5 thou/uL (1.40-6.50); %Basophils 0.7 % (0.0-1.0); %Eosinophils 4.5 % (0.0-10.0); %Lymphocytes 18.7 % (21.0-51.0); %Monocytes 9.9 % (0.0-10.0); %Neutrophils 66.2 % (42.0-75.0); Hemoglobin 12.9 g/dL (14.0-18.0); Mean Corpuscular HGB CONC 31.4 g/dL (32.0-36.0); Mean Corpuscular Hemoglobin 29.6 pg (27.0-31.0); Mean Corpuscular Volume 94.1 fL (78.0-98.0); Platelet Count 173 thou/uL (130-400); RBC Distribution Width 12.5 % (11.5-14.5); Red Blood Cell (RBC) Count 4.37 mill/uL (4.70-6.10); White Blood Cell (WBC) Count 6.7 thou/uL (4.8-10.8)
[2022-08-14 05:35] LABS: Anion Gap 11 mmol/L (10-20); BUN (Urea Nitrogen) 19 mg/dL (8.4-25.7); Calc. Creatinine Clearance 91 mL/min (70-130); Calcium 7.9 mg/dL (7.8-10.44); Carbon Dioxide 24 mmol/L (22-29); Chloride 111 mmol/L (98-107); Estimated GFR 57; Glucose 83 mg/dL (70-105); Potassium 3.7 mmol/L (3.5-5.1); Sodium 142 mmol/L (136-145)
[2022-08-14] MEDS ORDERED: HumuLIN 70/30 (300 UNITS/3 ML VIAL) SC SCH (07:30)
[2022-08-14] MEDS: hydrALAZINE 25 MG TAB PO SCH (08:19)
[2022-08-14] MEDS: Furosemide 40 MG TAB PO SCH (08:19)
[2022-08-14] MEDS: Senokot S 8.6-50 MG TAB PO SCH (08:19)
[2022-08-14] MEDS: Thiamine 100 MG TAB PO SCH (08:19)
[2022-08-14] MEDS: Amlodipine 10 MG TAB PO SCH (08:20)
[2022-08-14] MEDS ORDERED: hydrALAZINE 25 MG TAB PO SCH (11:59)
[2022-08-14] MEDS: hydrALAZINE 20 MG/ML VIAL SLOW IVP PRN (12:14)
[2022-08-14] MEDS: Acetaminophen 325 MG TAB PO PRN (13:36)
[2022-08-14 16:03] VITALS: BP 160/86; TEMP 98.1
== END 2022-08-14 19:13 | disposition home or self-care (01) | DRG 637 ==
LOC: ERS 16:28 → 2SW 19:59 → OBSVTOIN 08-12 15:50
PROVIDERS: ADMIT Student in an Organized Health Care Education/Training Program; ATTEND Internal Medicine
DX: E11.649 Type 2 diabetes mellitus with hypoglycemia without coma (principal); I50.33 Acute on chronic diastolic (congestive) heart failure; I13.0 Hypertensive heart and chronic kidney disease with heart failure and stage 1 through stage 4 chronic kidney disease, or unspecified chronic kidney disease; I42.8 Other cardiomyopathies; E78.5 Hyperlipidemia, unspecified; I16.0 Hypertensive urgency; N18.31 Chronic kidney disease, stage 3a; E11.22 Type 2 diabetes mellitus with diabetic chronic kidney disease; Z20.822 Contact with and (suspected) exposure to COVID-19; Z79.4 Long term (current) use of insulin; Z79.82 Long term (current) use of aspirin; Z79.899 Other long term (current) drug therapy
CPT/HCPCS: 36415; 36416; 71045; 74018; 80048; 80053; 81003; 81015; 82553; 83880; 84484; 85025; 93005; 96374; G0378; J0360; J1815; U0002

== ENCOUNTER 2022-11-06 10:10 | Emergency (ER) | payer MEDICARE, OTHER ==
[2022-11-06 11:03] LABS: #Eosinphils 0.2 thou/uL (0.0-0.7); #Lymphocytes 1.3 thou/uL (1.20-3.40); #Monocytes 0.6 thou/uL (0.11-0.59); #Neutrophils 3.6 thou/uL (1.40-6.50); %Basophils 0.6 % (0.0-1.0); %Eosinophils 3.5 % (0.0-10.0); %Lymphocytes 22.5 % (21.0-51.0); %Neutrophils 62.4 % (42.0-75.0); Hemoglobin 14.1 g/dL (14.0-18.0); Mean Corpuscular HGB CONC 32.9 g/dL (32.0-36.0); Mean Corpuscular Hemoglobin 30.4 pg (27.0-31.0); Mean Corpuscular Volume 92.4 fl (78.0-98.0); Mean Platelet Volume 9.7 fL (7.4-10.4); Platelet Count 175 10x3/uL (130-400); RBC Distribution Width 12.6 % (11.5-14.5); Red Blood Cell (RBC) Count 4.64 mill/uL (4.70-6.10); White Blood Cell (WBC) Count 5.7 10x3/uL (4.8-10.8)
[2022-11-06 11:21] LABS: ALT (SGPT) 31 U/L (8-55); AST (SGOT) 31 U/L (5-34); Albumin 2.6 g/dL (3.5-5.0); Alkaline Phosphatase 104 U/L (40-110); Anion Gap 11 mmol/L (10-20); BUN (Urea Nitrogen) 25 mg/dL (8.4-25.7); Bilirubin, Total 0.5 mg/dL (0.2-1.2); Calc. Creatinine Clearance 0 mL/min (70-130); Calcium 8.1 mg/dL (7.8-10.44); Carbon Dioxide 22 mmol/L (22-29); Chloride 110 mmol/L (98-107); Estimated GFR 56; Globulin 3.1 g/dL (2.4-3.5); Glucose 134 mg/dL (70-105); Potassium 3.8 mmol/L (3.5-5.1); Protein, Total 5.7 g/dL (6.0-8.3); Sodium 139 mmol/L (136-145)
[2022-11-06] MEDS ORDERED: Nitroglycerin 2% Ointment 1 INCH/1 GM Packet ONE (14:18)
[2022-11-06] MEDS ORDERED: Furosemide 40 MG/4 ML VIAL ONE (14:18)
[2022-11-06] MEDS ORDERED: Aspirin Chewable 81 MG TAB ONE (14:19)
== END 2022-11-06 15:27 | disposition home or self-care (01) ==
LOC: ERS 10:10
DX: I11.0 Hypertensive heart disease with heart failure (principal); I50.9 Heart failure, unspecified; E11.9 Type 2 diabetes mellitus without complications; E78.00 Pure hypercholesterolemia, unspecified; Z79.899 Other long term (current) drug therapy; Z79.4 Long term (current) use of insulin
CPT/HCPCS: 36415; 71045; 80053; 82553; 83880; 84484; 85025; 93005; 96374; J1940

== ENCOUNTER 2023-08-22 19:35 | Inpatient (IN) | payer OTHER ==
[2023-08-22 20:05] LABS: Hematocrit 37.2 % (42.0-52.0); Hemoglobin 12.5 g/dL (14.0-18.0); Mean Corpuscular HGB CONC 33.6 g/dL (32.0-36.0); Mean Corpuscular Hemoglobin 29.5 pg (27.0-31.0); Mean Corpuscular Volume 87.7 fl (78.0-98.0); Platelet Count 150 10x3/uL (130-400); RBC Distribution Width 12.2 % (11.5-14.5); Red Blood Cell (RBC) Count 4.24 mill/uL (4.70-6.10); White Blood Cell (WBC) Count 6.3 10x3/uL (4.8-10.8)
[2023-08-22 20:14] LABS: Delete Auto Diff?? YES; Manual Diff?? YES
[2023-08-22 20:25] LABS: Actual Bicarbonate (HCO3v) 25.3 mEq/L (22-28); Calcium, Ionized (venous) 1.09 mmol/L (1.16-1.32); Chloride (VBG) 99 mmol/L (98-106); Hematocrit-VBG 39 % (42.0-52.0); Hemoglobin (Hb) 13.2 g/dL (13.1-17.2); Potassium (VBG) 4.37 mmol/L (3.70-5.30); Sodium 133 mmol/L (133-146); pH (venous) 7.424 (7.32-7.43)
[2023-08-22 20:26] LABS: ALT (SGPT) 19 U/L (8-55); AST (SGOT) 19 U/L (5-34); Albumin 2.6 g/dL (3.5-5.0); Alkaline Phosphatase 71 U/L (40-110); Anion Gap 14 mmol/L (10-20); BUN (Urea Nitrogen) 43 mg/dL (8.4-25.7); Bilirubin, Total 0.2 mg/dL (0.2-1.2); Calc. Creatinine Clearance 0 mL/min (70-130); Calcium 8.2 mg/dL (7.8-10.44); Carbon Dioxide 26 mmol/L (22-29); Chloride 99 mmol/L (98-107); Estimated GFR 31; Globulin 2.8 g/dL (2.4-3.5); Glucose 325 mg/dL (70-105); Potassium 4.5 mmol/L (3.5-5.1); Protein, Total 5.4 g/dL (6.0-8.3); Sodium 134 mmol/L (136-145)
[2023-08-22 20:31] LABS: Acetaminophen Less than 10 mcg/mL (10.0-30.0); Alcohol Less than 10.0 mg/dL (Less than 10); Salicylate Less than 8.0 mg/dL (15.0-30.0)
[2023-08-22 20:43] LABS: Troponin I 0.045 ng/mL (< 0.028)
[2023-08-22 20:55] LABS: CellaVision Operator ID LAB.JMM; Eosinophils 2 % (0-10); Lymphocytes 17 % (21-51); Monocytes 5 % (0-10); Neutrophil 74 % (42-75); Platelet Adequacy Comment Platelets Normal; RBC Morphology Within Normal Limits; Reactive Lymphocytes 1 % (0-10); Total Cell Count 100
[2023-08-22] MEDS ORDERED: Aspirin Chewable 81 MG TAB ONE (22:26)
[2023-08-22 23:41] LABS: Bacteria/HPF None Seen HPF (None Seen); Bilirubin Negative (Negative); Blood, Urine Trace (Negative); CAUTI Indications for Culture Alt mental st,lethar; Clarity Clear (Clear); Glucose, Urine (Dipstick) >=1000 mg/dL (Negative); Ketone, Urine Negative (Negative); Leukocyte Negative Leu/uL (Negative); Nitrite Negative (Negative); Protein, Urine (Dipstick) 200 mg/dL (Neg-Trace); RBC/HPF 0-3 HPF (0-3); Specific Gravity, Urine 1.007 (1.002-1.036); Squamous Epithelial None Seen HPF (0-3); Urobilinogen Normal mg/dL (Less than 2); WBC/HPF 0-3 HPF (0-3)
[2023-08-22 23:42] LABS: Urine Culture Reflex No No
[2023-08-22 23:48] LABS: Amphetamine Not Detected (NotDetected); Barbiturates Screen Not Detected (NotDetected); Benzodiazepine Screen Not Detected (NotDetected); Cocaine Metabolite Screen Not Detected (NotDetected); Methadone Not Detected (NotDetected); Methamphetamine Not Detected (NotDetected); Opiate Screen Not Detected (NotDetected); Oxycodone Screen Not Detected (NotDetected); Phencyclidine (PCP) Not Detected (NotDetected); THC/Cannabinoid Screen Detected (NotDetected); Tricyclic Screen Not Detected (NotDetected)
[2023-08-22] MEDS ORDERED: Acetaminophen 325 MG TAB PO PRN (23:58)
[2023-08-22] MEDS ORDERED: Ondansetron ODT 4 MG TAB PO PRN (23:58)
[2023-08-22] MEDS ORDERED: HumaLOG 300 UNITS/3 ML VIAL SC PRN (23:59)
[2023-08-22] MEDS ORDERED: Dextrose 5% in Water 1,000 ML IV PRN (23:59)
[2023-08-22] MEDS ORDERED: Dextrose 50% Abboject 50 ML SYRINGE SLOW IVP PRN (23:59)
[2023-08-22] MEDS ORDERED: Glucagon 1 MG/ML KIT IM PRN (23:59)
[2023-08-23] MEDS ORDERED: Furosemide 40 MG TAB PO PRN (00:08)
[2023-08-23 00:28] LABS: Hemoglobin A1c 12.7 % (4.0-6.0)
[2023-08-23] MEDS ORDERED: HumaLOG 300 UNITS/3 ML VIAL ONE (01:03)
[2023-08-23 01:12] LABS: Troponin I 0.038 ng/mL (< 0.028)
[2023-08-23] MEDS: HumaLOG 300 UNITS/3 ML VIAL SC PRN ×2 (01:33→23:00)
[2023-08-23] MEDS ORDERED: hydrALAZINE 25 MG TAB PO SCH (02:00)
[2023-08-23 03:52] LABS: #Basophils 0.1 thou/uL (0.0-0.2); #Eosinphils 0.3 thou/uL (0.0-0.7); #Monocytes 0.5 thou/uL (0.11-0.59); #Neutrophils 3.9 thou/uL (1.40-6.50); %Basophils 0.8 % (0.0-1.0); %Eosinophils 4.1 % (0.0-10.0); %Lymphocytes 26.3 % (21.0-51.0); %Monocytes 8.4 % (0.0-10.0); %Neutrophils 60.2 % (42.0-75.0); Mean Corpuscular HGB CONC 32.8 g/dL (32.0-36.0); Mean Corpuscular Hemoglobin 29.3 pg (27.0-31.0); Mean Corpuscular Volume 89.5 fl (78.0-98.0); Mean Platelet Volume 12.3 fL (7.4-10.4); Platelet Count 149 10x3/uL (130-400); RBC Distribution Width 12.3 % (11.5-14.5); Red Blood Cell (RBC) Count 5.35 mill/uL (4.70-6.10); White Blood Cell (WBC) Count 6.4 10x3/uL (4.8-10.8)
[2023-08-23 04:18] LABS: Anion Gap 17 mmol/L (10-20); BUN (Urea Nitrogen) 36 mg/dL (8.4-25.7); Calc. Creatinine Clearance 0 mL/min (70-130); Calcium 8.5 mg/dL (7.8-10.44); Carbon Dioxide 24 mmol/L (22-29); Chloride 100 mmol/L (98-107); Estimated GFR 38; Glucose 321 mg/dL (70-105); Potassium 4.1 mmol/L (3.5-5.1); Sodium 137 mmol/L (136-145)
[2023-08-23 04:22] LABS: Troponin I 0.042 ng/mL (< 0.028)
[2023-08-23 05:49] LABS: Hematocrit 47.9 % (42.0-52.0); Hemoglobin 15.7 g/dL (14.0-18.0)
[2023-08-23] MEDS ORDERED: Furosemide 40 MG TAB PO SCH (07:30)
[2023-08-23] MEDS ORDERED: Sodium Chloride 0.9% 1,000 ML IV SCH (08:30)
[2023-08-23] MEDS ORDERED: Amlodipine 10 MG TAB PO SCH (09:00)
[2023-08-23] MEDS ORDERED: Thiamine 100 MG TAB ONE (11:36)
[2023-08-23] MEDS ORDERED: Famotidine 20 MG TAB ONE (11:38)
[2023-08-23] MEDS: hydrALAZINE 25 MG TAB PO SCH ×3 (11:49→23:07)
[2023-08-23] MEDS: Famotidine 20 MG TAB PO SCH (11:49)
[2023-08-23] MEDS: Sacubitril 24MG/Valsartan 26 MG TAB PO SCH ×2 (11:49→23:08)
[2023-08-23] MEDS: Thiamine 100 MG TAB PO SCH (11:50)
[2023-08-23] MEDS ORDERED: HumaLOG 300 UNITS/3 ML VIAL SC PRN (14:12)
[2023-08-23] MEDS ORDERED: NIFEdipine XL 30 MG ER.TAB PO SCH (14:30)
[2023-08-23] MEDS: Sodium Chloride 0.9% 1,000 ML IV SCH (18:49)
[2023-08-23] MEDS ORDERED: Gabapentin 300 MG CAP PO SCH (23:00)
[2023-08-23] MEDS: Insulin Glargine 30 UNITS/0.3 ML VIAL SC SCH (23:07)
[2023-08-23] MEDS: NIFEdipine XL 30 MG ER.TAB PO SCH (23:08)
[2023-08-24] MEDS: Sodium Chloride 0.9% 1,000 ML IV SCH ×2 (03:10→15:05)
[2023-08-24 04:30] LABS: #Basophils 0.1 thou/uL (0.0-0.2); #Eosinphils 0.2 thou/uL (0.0-0.7); #Monocytes 0.4 thou/uL (0.11-0.59); #Neutrophils 4.5 thou/uL (1.40-6.50); %Basophils 1.1 % (0.0-1.0); %Eosinophils 3.5 % (0.0-10.0); %Lymphocytes 19.5 % (21.0-51.0); %Monocytes 6.5 % (0.0-10.0); %Neutrophils 69.1 % (42.0-75.0); Hematocrit 43.1 % (42.0-52.0); Hemoglobin 14.2 g/dL (14.0-18.0); Mean Corpuscular HGB CONC 32.9 g/dL (32.0-36.0); Mean Platelet Volume 11.1 fL (7.4-10.4); Platelet Count 146 10x3/uL (130-400); RBC Distribution Width 12.2 % (11.5-14.5); White Blood Cell (WBC) Count 6.6 10x3/uL (4.8-10.8)
[2023-08-24 04:57] LABS: Anion Gap 11 mmol/L (10-20); BUN (Urea Nitrogen) 26 mg/dL (8.4-25.7); Calc. Creatinine Clearance 63 mL/min (70-130); Carbon Dioxide 23 mmol/L (22-29); Chloride 105 mmol/L (98-107); Estimated GFR 49; Glucose 303 mg/dL (70-105); Potassium 3.4 mmol/L (3.5-5.1); Sodium 136 mmol/L (136-145)
[2023-08-24 05:23] VITALS: BMI 26.4
[2023-08-24] MEDS ORDERED: Potassium Bicarbonate/Cit Ac 20 MEQ TAB PO SCH (08:15)
[2023-08-24] MEDS: Sacubitril 24MG/Valsartan 26 MG TAB PO SCH ×2 (08:55→23:19)
[2023-08-24] MEDS: Famotidine 20 MG TAB PO SCH ×2 (08:55→23:20)
[2023-08-24] MEDS: hydrALAZINE 25 MG TAB PO SCH ×3 (08:55→23:19)
[2023-08-24] MEDS: NIFEdipine XL 30 MG ER.TAB PO SCH ×2 (08:55→23:19)
[2023-08-24] MEDS: Thiamine 100 MG TAB PO SCH (08:56)
[2023-08-24] MEDS ORDERED: Insulin Glargine 30 UNITS/0.3 ML VIAL SC SCH ×2 (09:00→14:45)
[2023-08-24] MEDS: Insulin Glargine 30 UNITS/0.3 ML VIAL SC SCH (23:19)
[2023-08-25 04:25] LABS: #Eosinphils 0.3 thou/uL (0.0-0.7); #Monocytes 0.4 thou/uL (0.11-0.59); #Neutrophils 3.8 thou/uL (1.40-6.50); %Basophils 0.6 % (0.0-1.0); %Eosinophils 4.1 % (0.0-10.0); %Lymphocytes 27.9 % (21.0-51.0); %Neutrophils 59.9 % (42.0-75.0); Hematocrit 41.1 % (42.0-52.0); Hemoglobin 13.6 g/dL (14.0-18.0); Mean Corpuscular HGB CONC 33.1 g/dL (32.0-36.0); Mean Corpuscular Hemoglobin 29.1 pg (27.0-31.0); Mean Corpuscular Volume 87.8 fl (78.0-98.0); Mean Platelet Volume 11.6 fL (7.4-10.4); Platelet Count 151 10x3/uL (130-400); RBC Distribution Width 12.3 % (11.5-14.5); Red Blood Cell (RBC) Count 4.68 mill/uL (4.70-6.10); White Blood Cell (WBC) Count 6.3 10x3/uL (4.8-10.8)
[2023-08-25 04:52] LABS: Anion Gap 10 mmol/L (10-20); BUN (Urea Nitrogen) 23 mg/dL (8.4-25.7); Calc. Creatinine Clearance 63 mL/min (70-130); Calcium 7.9 mg/dL (7.8-10.44); Carbon Dioxide 24 mmol/L (22-29); Chloride 110 mmol/L (98-107); Estimated GFR 47; Glucose 102 mg/dL (70-105); Potassium 3.7 mmol/L (3.5-5.1); Sodium 140 mmol/L (136-145)
[2023-08-25] MEDS: Sodium Chloride 0.9% 1,000 ML IV SCH (06:39)
[2023-08-25] MEDS ORDERED: Insulin Glargine 30 UNITS/0.3 ML VIAL SC SCH (09:00)
[2023-08-25] MEDS ORDERED: Iopamidol-370 76% 500 ML MDV (1 ML CHARGE) ONE (09:10)
[2023-08-25] MEDS: NIFEdipine XL 30 MG ER.TAB PO SCH (09:13)
[2023-08-25] MEDS: Sacubitril 24MG/Valsartan 26 MG TAB PO SCH (09:13)
[2023-08-25] MEDS: Thiamine 100 MG TAB PO SCH (09:14)
[2023-08-25] MEDS: Famotidine 20 MG TAB PO SCH (09:14)
[2023-08-25] MEDS: hydrALAZINE 25 MG TAB PO SCH ×2 (09:14→14:12)
[2023-08-25 19:39] VITALS: BP 160/92; TEMP 98.1
[2023-08-25] MEDS ORDERED: Atorvastatin Calcium 40 MG TAB PO SCH (21:00)
[2023-08-26] MEDS ORDERED: Aspirin 325 mg Enteric Coated Tablet PO SCH (09:00)
== END 2023-08-25 18:45 | disposition home or self-care (01) | DRG 896 ==
LOC: ERS 19:35 → ERHOLD 23:58 → 2NO 08-23 17:25 → OBSVTOIN 08-25 08:28
PROVIDERS: ADMIT Student in an Organized Health Care Education/Training Program; ATTEND Hospitalist
DX: F10.229 Alcohol dependence with intoxication, unspecified (principal); G93.41 Metabolic encephalopathy; N17.9 Acute kidney failure, unspecified; I50.32 Chronic diastolic (congestive) heart failure; I13.0 Hypertensive heart and chronic kidney disease with heart failure and stage 1 through stage 4 chronic kidney disease, or unspecified chronic kidney disease; F12.229 Cannabis dependence with intoxication, unspecified; I65.21 Occlusion and stenosis of right carotid artery; E11.65 Type 2 diabetes mellitus with hyperglycemia; N18.30 Chronic kidney disease, stage 3 unspecified; E11.22 Type 2 diabetes mellitus with diabetic chronic kidney disease; Z79.899 Other long term (current) drug therapy; Z91.018 Allergy to other foods; Z83.3 Family history of diabetes mellitus; Z82.49 Family history of ischemic heart disease and other diseases of the circulatory system; E86.0 Dehydration; E78.00 Pure hypercholesterolemia, unspecified
CPT/HCPCS: 36415; 36416; 70450; 70496; 70498; 70551; 71045; 72125; 80048; 80053; 80306; 80307; 81001; 82805; 83036; 83735; 83880; 84484; 85025; 93005; 93306; 93880; 96360; 96361; G0378; J1815; J7050

== ENCOUNTER 2023-08-29 18:56 | Emergency (ER) | payer OTHER ==
[2023-08-29 19:22] LABS: #Eosinphils 0.2 thou/uL (0.0-0.7); #Monocytes 0.5 thou/uL (0.11-0.59); #Neutrophils 3.3 thou/uL (1.40-6.50); %Basophils 0.7 % (0.0-1.0); %Eosinophils 3.9 % (0.0-10.0); %Lymphocytes 24.9 % (21.0-51.0); %Monocytes 8.7 % (0.0-10.0); %Neutrophils 61.4 % (42.0-75.0); Hematocrit 34.2 % (42.0-52.0); Hemoglobin 11.4 g/dL (14.0-18.0); Mean Corpuscular HGB CONC 33.3 g/dL (32.0-36.0); Mean Corpuscular Hemoglobin 29.7 pg (27.0-31.0); Mean Corpuscular Volume 89.1 fl (78.0-98.0); Mean Platelet Volume 11.9 fL (7.4-10.4); Platelet Count 142 10x3/uL (130-400); RBC Distribution Width 12.7 % (11.5-14.5); Red Blood Cell (RBC) Count 3.84 mill/uL (4.70-6.10); White Blood Cell (WBC) Count 5.4 10x3/uL (4.8-10.8)
[2023-08-29] MEDS ORDERED: Atropine Sulfate 1 mg/10 ml Syringe ONE (19:44)
[2023-08-29 19:45] LABS: Acetaminophen Less than 10 mcg/mL (10.0-30.0); Alcohol Less than 10.0 mg/dL (Less than 10); Lipase 31 U/L (8-78); Salicylate Less than 8.0 mg/dL (15.0-30.0)
[2023-08-29 19:46] LABS: ALT (SGPT) 18 U/L (8-55); AST (SGOT) 21 U/L (5-34); Albumin 2.6 g/dL (3.5-5.0); Alkaline Phosphatase 56 U/L (40-110); Anion Gap 11 mmol/L (10-20); BUN (Urea Nitrogen) 63 mg/dL (8.4-25.7); Bilirubin, Total 0.3 mg/dL (0.2-1.2); Calc. Creatinine Clearance 0 mL/min (70-130); Calcium 7.4 mg/dL (7.8-10.44); Carbon Dioxide 22 mmol/L (22-29); Chloride 103 mmol/L (98-107); Estimated GFR 23; Globulin 2.5 g/dL (2.4-3.5); Glucose 297 mg/dL (70-105); Potassium 4.8 mmol/L (3.5-5.1); Protein, Total 5.1 g/dL (6.0-8.3); Sodium 131 mmol/L (136-145)
[2023-08-29] MEDS ORDERED: Naloxone HCl 0.4 mg/ml Vial ONE (19:59)
[2023-08-29 20:08] LABS: Bacteria/HPF None Seen HPF (None Seen); Bilirubin Negative (Negative); Blood, Urine Negative (Negative); CAUTI Indications for Culture Alt mental st,lethar; Clarity Clear (Clear); Glucose, Urine (Dipstick) 70 mg/dL (Negative); Ketone, Urine Negative (Negative); Leukocyte Negative Leu/uL (Negative); Nitrite Negative (Negative); Protein, Urine (Dipstick) 100 mg/dL (Neg-Trace); RBC/HPF 0-3 HPF (0-3); Specific Gravity, Urine 1.011 (1.002-1.036); Squamous Epithelial 0-3 HPF (0-3); Transitional Epithelial 0-3 HPF (None Seen); Urobilinogen Normal mg/dL (Less than 2); WBC/HPF 0-3 HPF (0-3)
[2023-08-29 20:10] LABS: Urine Culture Reflex No No
[2023-08-29 20:12] LABS: Amphetamine Not Detected (NotDetected); Barbiturates Screen Not Detected (NotDetected); Benzodiazepine Screen Not Detected (NotDetected); Cocaine Metabolite Screen Not Detected (NotDetected); Methadone Not Detected (NotDetected); Methamphetamine Not Detected (NotDetected); Opiate Screen Not Detected (NotDetected); Oxycodone Screen Not Detected (NotDetected); Phencyclidine (PCP) Not Detected (NotDetected); THC/Cannabinoid Screen Detected (NotDetected); Tricyclic Screen Not Detected (NotDetected)
== END 2023-08-29 20:49 | disposition home or self-care (01) ==
LOC: ERS 18:56
DX: F19.90 Other psychoactive substance use, unspecified, uncomplicated (principal); E11.9 Type 2 diabetes mellitus without complications; E78.00 Pure hypercholesterolemia, unspecified; I11.0 Hypertensive heart disease with heart failure; I50.9 Heart failure, unspecified
CPT/HCPCS: 70450; 80053; 80306; 80307; 81001; 82140; 82962; 83690; 85025; 93005; J0461; 36416; 51701; 96374; 96375; J2310

== ENCOUNTER 2023-11-01 20:17 | Observation (INO) | payer OTHER ==
[2023-11-01 21:02] LABS: Troponin I 0.023 ng/mL (< 0.028)
[2023-11-01 21:09] LABS: Amphetamine Not Detected (NotDetected); Barbiturates Screen Not Detected (NotDetected); Benzodiazepine Screen Not Detected (NotDetected); Cocaine Metabolite Screen Not Detected (NotDetected); Methadone Not Detected (NotDetected); Methamphetamine Not Detected (NotDetected); Opiate Screen Not Detected (NotDetected); Oxycodone Screen Not Detected (NotDetected); Phencyclidine (PCP) Not Detected (NotDetected); THC/Cannabinoid Screen Detected (NotDetected); Tricyclic Screen Not Detected (NotDetected)
[2023-11-01 21:15] LABS: #Basophils 0.1 thou/uL (0.0-0.2); #Eosinphils 0.2 thou/uL (0.0-0.7); #Monocytes 0.5 thou/uL (0.11-0.59); #Neutrophils 4.4 thou/uL (1.40-6.50); %Basophils 0.8 % (0.0-1.0); %Eosinophils 3.1 % (0.0-10.0); %Lymphocytes 21.8 % (21.0-51.0); %Monocytes 7.2 % (0.0-10.0); %Neutrophils 66.6 % (42.0-75.0); Hematocrit 37.1 % (42.0-52.0); Mean Corpuscular HGB CONC 32.3 g/dL (32.0-36.0); Mean Corpuscular Hemoglobin 29.1 pg (27.0-31.0); Mean Corpuscular Volume 89.8 fl (78.0-98.0); Mean Platelet Volume 11.2 fL (7.4-10.4); Platelet Count 184 10x3/uL (130-400); RBC Distribution Width 12.9 % (11.5-14.5); Red Blood Cell (RBC) Count 4.13 mill/uL (4.70-6.10); White Blood Cell (WBC) Count 6.6 10x3/uL (4.8-10.8)
[2023-11-01] MEDS ORDERED: cefTRIAXone (ROCEPHIN) 1 GM VIAL ONE (21:18)
[2023-11-01] MEDS ORDERED: Azithromycin 500 MG VIAL ONE (21:18)
[2023-11-01 21:20] LABS: Bacteria/HPF None Seen HPF (None Seen); Bilirubin Negative (Negative); Blood, Urine Negative (Negative); CAUTI Indications for Culture Alt mental st,lethar; Clarity Clear (Clear); Glucose, Urine (Dipstick) Greater than 1000 mg/dL (Negative); Ketone, Urine Negative (Negative); Leukocyte Negative Leu/uL (Negative); Nitrite Negative (Negative); Protein, Urine (Dipstick) 30 mg/dL (Neg-Trace); RBC/HPF 0-3 HPF (0-3); Squamous Epithelial None Seen HPF (0-3); Urobilinogen Normal mg/dL (Less than 2); WBC/HPF None Seen HPF (0-3)
[2023-11-01 21:25] LABS: Urine Culture Reflex No No
[2023-11-01 21:33] LABS: ALT (SGPT) 13 U/L (8-55); AST (SGOT) 17 U/L (5-34); Albumin 3.1 g/dL (3.4-4.8); Alkaline Phosphatase 69 U/L (40-110); Anion Gap 15 mmol/L (10-20); BUN (Urea Nitrogen) 50 mg/dL (8.4-25.7); Bilirubin, Total 0.5 mg/dL (0.2-1.2); Calc. Creatinine Clearance 0 mL/min (70-130); Calcium 8.5 mg/dL (7.8-10.44); Carbon Dioxide 25 mmol/L (23-31); Chloride 94 mmol/L (98-107); Estimated GFR 31; Globulin 3.4 g/dL (2.4-3.5); Potassium 4.6 mmol/L (3.5-5.1); Protein, Total 6.5 g/dL (5.8-8.1); Sodium 129 mmol/L (136-145)
[2023-11-01 21:34] LABS: Acetaminophen Less than 10 mcg/mL (10.0-30.0); Alcohol Less than 10.0 mg/dL (Less than 10); Salicylate Less than 8.0 mg/dL (15.0-30.0)
[2023-11-01 21:35] LABS: Magnesium 2.1 mg/dL (1.6-2.6)
[2023-11-01 21:43] LABS: Critical Call Chemistry NUR.BJP@2142; Glucose 544 mg/dL (80-115)
[2023-11-01] MEDS ORDERED: Ondansetron PF 4 MG/2 ML Vial IVP PRN (22:45)
[2023-11-01] MEDS ORDERED: Acetaminophen 325 MG TAB PO PRN ×2 (22:45→23:17)
[2023-11-01] MEDS ORDERED: Ondansetron ODT 4 MG TAB SL PRN (22:45)
[2023-11-01] MEDS ORDERED: Glucagon 1 MG/ML KIT IM PRN (23:15)
[2023-11-01] MEDS ORDERED: Dextrose 5% in Water 1,000 ML IV PRN (23:15)
[2023-11-01] MEDS ORDERED: Dextrose 50% Abboject 50 ML SYRINGE SLOW IVP PRN (23:15)
[2023-11-01] MEDS ORDERED: Calcium Carbonate 500 MG ChewTAB PO PRN (23:17)
[2023-11-01] MEDS ORDERED: Ondansetron ODT 4 MG TAB PO PRN (23:17)
[2023-11-01] MEDS: Sodium Chloride 0.9% 1,000 ML IV SCH (23:35)
[2023-11-01 23:42] VITALS: BMI 24.5
[2023-11-01] MEDS: HumaLOG 300 UNITS/3 ML VIAL SC PRN (23:47)
[2023-11-01] MEDS: Insulin Glargine 30 UNITS/0.3 ML VIAL SC SCH (23:51)
[2023-11-02 05:27] LABS: #Basophils 0.1 thou/uL (0.0-0.2); #Eosinphils 0.3 thou/uL (0.0-0.7); #Monocytes 0.6 thou/uL (0.11-0.59); #Neutrophils 4.3 thou/uL (1.40-6.50); %Basophils 0.7 % (0.0-1.0); %Eosinophils 3.7 % (0.0-10.0); %Lymphocytes 21.7 % (21.0-51.0); %Monocytes 9.1 % (0.0-10.0); %Neutrophils 64.4 % (42.0-75.0); Hemoglobin 12.3 g/dL (14.0-18.0); Mean Corpuscular HGB CONC 32.4 g/dL (32.0-36.0); Mean Corpuscular Hemoglobin 29.1 pg (27.0-31.0); Mean Platelet Volume 12.1 fL (7.4-10.4); Platelet Count 164 10x3/uL (130-400); Red Blood Cell (RBC) Count 4.22 mill/uL (4.70-6.10); White Blood Cell (WBC) Count 6.7 10x3/uL (4.8-10.8)
[2023-11-02 05:52] LABS: Anion Gap 11 mmol/L (10-20); BUN (Urea Nitrogen) 43 mg/dL (8.4-25.7); Calc. Creatinine Clearance 47 mL/min (70-130); Calcium 8.5 mg/dL (7.8-10.44); Carbon Dioxide 28 mmol/L (23-31); Chloride 102 mmol/L (98-107); Estimated GFR 37; Potassium 4.1 mmol/L (3.5-5.1); Sodium 137 mmol/L (136-145)
[2023-11-02 06:01] LABS: Critical Call Chemistry NUR.BR6@0600; Glucose 403 mg/dL (80-115)
[2023-11-02] MEDS: HumaLOG 300 UNITS/3 ML VIAL SC PRN (06:03)
[2023-11-02] MEDS ORDERED: FLU VACC QS2023-24(6MOS UP)/PF 60 MCG/0.5 ML SYRINGE IM ONE (09:00)
[2023-11-02] MEDS: cefTRIAXone\\ROCEPHIN 1 GM in Sodium Chloride 0.9% 100 ML IVPB SCH (09:53)
[2023-11-02] MEDS: Famotidine 20 MG TAB PO SCH (09:53)
[2023-11-02] MEDS: Sacubitril 24MG/Valsartan 26 MG TAB PO SCH (09:54)
[2023-11-02] MEDS: Thiamine 100 MG TAB PO SCH (09:54)
[2023-11-02] MEDS: hydrALAZINE 25 MG TAB PO SCH (09:54)
[2023-11-02] MEDS: Doxycycline 100 MG CAP PO SCH (09:54)
[2023-11-02] MEDS: Amlodipine 10 MG TAB PO SCH (09:54)
[2023-11-02 10:55] VITALS: TEMP 98.4
[2023-11-02 11:28] LABS: Anion Gap 15 mmol/L (10-20); BUN (Urea Nitrogen) 37 mg/dL (8.4-25.7); Calc. Creatinine Clearance 56 mL/min (70-130); Calcium 8.4 mg/dL (7.8-10.44); Carbon Dioxide 17 mmol/L (23-31); Chloride 107 mmol/L (98-107); Estimated GFR 45; Glucose 317 mg/dL (80-115); Potassium 4.4 mmol/L (3.5-5.1); Sodium 135 mmol/L (136-145)
[2023-11-02 11:31] VITALS: BP 137/96
[2023-11-02] MEDS ORDERED: Insulin Glargine 30 UNITS/0.3 ML VIAL SC SCH (21:00)
[2023-11-02] MEDS ORDERED: Atorvastatin Calcium 40 MG TAB PO SCH (21:00)
== END 2023-11-02 16:04 | disposition home or self-care (01) ==
LOC: ERS 20:17 → INTOOBSV 22:11 → 2NO 22:11
PROVIDERS: ADMIT Student in an Organized Health Care Education/Training Program; ATTEND Family Medicine
DX: R41.82 Altered mental status, unspecified (principal); I13.0 Hypertensive heart and chronic kidney disease with heart failure and stage 1 through stage 4 chronic kidney disease, or unspecified chronic kidney disease; I50.30 Unspecified diastolic (congestive) heart failure; E11.22 Type 2 diabetes mellitus with diabetic chronic kidney disease; N18.9 Chronic kidney disease, unspecified; N17.9 Acute kidney failure, unspecified; E11.65 Type 2 diabetes mellitus with hyperglycemia; E78.5 Hyperlipidemia, unspecified; Z91.018 Allergy to other foods; Z79.4 Long term (current) use of insulin; Z79.899 Other long term (current) drug therapy; Z79.82 Long term (current) use of aspirin
CPT/HCPCS: 80048 ×2; 80053; 80306; 80307; 81001; 82140; 82962 ×2; 83735; 84100; 84484; 85025 ×2; 96361; 96365; 96375; 96376; 99285; G0378 ×2; J0456; 36415; 36416; J0696; J1815; J3490; J7050

== ENCOUNTER 2025-05-26 22:47 | Inpatient (IN) | payer MEDICARE, MEDICAID ==
[2025-05-26] MEDS ORDERED: Dextrose 50% Abboject 50 ML SYRINGE ONE ×2 (23:18→23:51)
[2025-05-26] MEDS ORDERED: hydrALAZINE 20 MG/ML VIAL ONE (23:30)
[2025-05-26 23:41] LABS: #Basophils 0.03 10x3/uL (0.0-0.2); #Eosinophils 0.18 10x3/uL (0.0-0.7); #Monocytes 0.55 10x3/uL (0.11-0.59); #Neutrophils 4.37 10x3/uL (1.40-6.50); %Basophils 0.4 % (0.0-1.0); %Eosinophils 2.7 % (0.0-10.0); %Lymphocytes 24.0 % (21.0-51.0); %Monocytes 8.1 % (0.0-10.0); %Neutrophils 64.4 % (42.0-75.0); Hematocrit 34.3 % (42.0-52.0); Hemoglobin 11.1 g/dL (14.0-18.0); Mean Corpuscular Hemoglobin 29.1 pg (27.0-31.0); Mean Corpuscular Volume 90.0 fL (78.0-98.0); Platelet Count 205 10x3/uL (130-400); Red Blood Cell (RBC) Count 3.81 mill/uL (4.70-6.10); White Blood Cell (WBC) Count 6.79 10x3/uL (4.8-10.8)
[2025-05-27 00:18] LABS: ALT (SGPT) 18 U/L (Less than 45); AST (SGOT) 23 U/L (11-34); Albumin 2.3 g/dL (3.1-4.5); Alkaline Phosphatase 57 U/L (40-110); Anion Gap 15 mmol/L (10-20); BUN (Urea Nitrogen) 41 mg/dL (8.4-25.7); Bilirubin, Total 0.2 mg/dL (0.3-1.2); Calc. Creatinine Clearance 0 mL/min (70-130); Calcium 8.1 mg/dL (7.8-10.44); Carbon Dioxide 19 mmol/L (23-31); Chloride 110 mmol/L (98-107); Globulin 3.5 g/dL (2.4-3.5); Glucose 31 mg/dL (80-115); Potassium 3.5 mmol/L (3.5-5.1); Sodium 140 mmol/L (136-145)
[2025-05-27] MEDS ORDERED: Dextrose 50% Abboject 50 ML SYRINGE ONE (01:01)
[2025-05-27] MEDS ORDERED: Electrolyte Replacement Protocol 1 EACH FS PRN (03:11)
[2025-05-27 03:20] VITALS: BMI 25.0
[2025-05-27] MEDS ORDERED: Calcium Carbonate 500 MG ChewTAB PO PRN (03:53)
[2025-05-27 04:00] LABS: Anion Gap 14 mmol/L (10-20); BUN (Urea Nitrogen) 44 mg/dL (8.4-25.7); Calc. Creatinine Clearance 42 mL/min (70-130); Calcium 8.2 mg/dL (7.8-10.44); Carbon Dioxide 21 mmol/L (23-31); Chloride 108 mmol/L (98-107); Glucose 92 mg/dL (80-115); Magnesium 2.4 mg/dL (1.6-2.6); Potassium 4.1 mmol/L (3.5-5.1); Sodium 139 mmol/L (136-145)
[2025-05-27 04:39] LABS: Bacteria/HPF None Seen HPF (None Seen); Glucose, Urine (Dipstick) Greater than 1000 mg/dL (Negative); Leukocyte Negative Leu/uL (Negative); Protein, Urine (Dipstick) 100 mg/dL (Neg-Trace); RBC/HPF 0-3 HPF (0-3); Specific Gravity, Urine 1.011 (1.002-1.036); WBC/HPF 0-3 HPF (0-3)
[2025-05-27] MEDS: Furosemide 20 MG TAB PO SCH (07:17)
[2025-05-27] MEDS: Carvedilol 3.125 MG TAB PO SCH (09:14)
[2025-05-27] MEDS: Aspirin 81 mg Enteric Coated Tablet PO SCH (09:15)
[2025-05-27] MEDS: Losartan 25 MG TAB PO SCH (09:15)
[2025-05-27] MEDS: Heparin 5,000 UNITS/ML VIAL SC SCH (09:15)
[2025-05-27] MEDS: Acetaminophen 325 MG TAB PO PRN (21:09)
[2025-05-28 02:54] LABS: #Basophils 0.03 10x3/uL (0.0-0.2); #Eosinophils 0.17 10x3/uL (0.0-0.7); #Monocytes 0.65 10x3/uL (0.11-0.59); #Neutrophils 5.16 10x3/uL (1.40-6.50); %Basophils 0.4 % (0.0-1.0); %Eosinophils 2.4 % (0.0-10.0); %Lymphocytes 16.3 % (21.0-51.0); %Monocytes 9.0 % (0.0-10.0); %Neutrophils 71.6 % (42.0-75.0); Hematocrit 29.7 % (42.0-52.0); Hemoglobin 9.5 g/dL (14.0-18.0); Mean Corpuscular Hemoglobin 29.0 pg (27.0-31.0); Mean Corpuscular Volume 90.5 fL (78.0-98.0); Platelet Count 173 10x3/uL (130-400); Red Blood Cell (RBC) Count 3.28 mill/uL (4.70-6.10); White Blood Cell (WBC) Count 7.20 10x3/uL (4.8-10.8)
[2025-05-28 03:10] LABS: Anion Gap 12 mmol/L (10-20); BUN (Urea Nitrogen) 40 mg/dL (8.4-25.7); Calc. Creatinine Clearance 37 mL/min (70-130); Calcium 7.8 mg/dL (7.8-10.44); Carbon Dioxide 20 mmol/L (23-31); Chloride 109 mmol/L (98-107); Glucose 210 mg/dL (80-115); Potassium 4.4 mmol/L (3.5-5.1); Sodium 137 mmol/L (136-145)
[2025-05-28] MEDS: Insulin Glargine 30 UNITS/0.3 ML VIAL SC SCH ×2 (12:58→21:46)
[2025-05-28] MEDS ORDERED: Glucagon 1 MG/ML KIT IM PRN (17:04)
[2025-05-29] MEDS: Dextrose 50% Abboject 50 ML SYRINGE SLOW IVP PRN (04:38)
[2025-05-29] MEDS: hydrALAZINE 20 MG/ML VIAL SLOW IVP PRN (04:48)
[2025-05-29 06:32] LABS: Anion Gap 11 mmol/L (10-20); BUN (Urea Nitrogen) 37 mg/dL (8.4-25.7); Calc. Creatinine Clearance 41 mL/min (70-130); Calcium 8.0 mg/dL (7.8-10.44); Carbon Dioxide 23 mmol/L (23-31); Chloride 110 mmol/L (98-107); Glucose 36 mg/dL (80-115); Potassium 4.0 mmol/L (3.5-5.1); Sodium 140 mmol/L (136-145)
[2025-05-30] MEDS ORDERED: Senokot S 8.6-50 MG TAB PO PRN (08:21)
[2025-05-30 09:04] LABS: #Basophils 0.06 10x3/uL (0.0-0.2); #Eosinophils 0.14 10x3/uL (0.0-0.7); #Monocytes 0.34 10x3/uL (0.11-0.59); #Neutrophils 3.27 10x3/uL (1.40-6.50); %Basophils 1.3 % (0.0-1.0); %Eosinophils 3.0 % (0.0-10.0); %Lymphocytes 18.0 % (21.0-51.0); %Monocytes 7.3 % (0.0-10.0); %Neutrophils 70.0 % (42.0-75.0); Hematocrit 36.2 % (42.0-52.0); Hemoglobin 11.1 g/dL (14.0-18.0); Mean Corpuscular Hemoglobin 28.8 pg (27.0-31.0); Mean Corpuscular Volume 93.8 fL (78.0-98.0); Platelet Count 165 10x3/uL (130-400); Red Blood Cell (RBC) Count 3.86 mill/uL (4.70-6.10); White Blood Cell (WBC) Count 4.67 10x3/uL (4.8-10.8)
[2025-05-30 09:19] LABS: Anion Gap 14 mmol/L (10-20); BUN (Urea Nitrogen) 39 mg/dL (8.4-25.7); Calc. Creatinine Clearance 44 mL/min (70-130); Calcium 7.7 mg/dL (7.8-10.44); Carbon Dioxide 17 mmol/L (23-31); Chloride 110 mmol/L (98-107); Glucose 214 mg/dL (80-115); Potassium 4.7 mmol/L (3.5-5.1); Sodium 136 mmol/L (136-145)
[2025-05-30] MEDS: Rosuvastatin 5 MG TAB PO SCH (09:24)
[2025-05-30] MEDS: Insulin Glargine 30 UNITS/0.3 ML VIAL SC SCH (09:24)
[2025-05-30] MEDS: Senokot S 8.6-50 MG TAB PO PRN (09:25)
[2025-05-31 07:10] LABS: #Basophils 0.06 10x3/uL (0.0-0.2); #Eosinophils 0.21 10x3/uL (0.0-0.7); #Monocytes 0.45 10x3/uL (0.11-0.59); #Neutrophils 3.34 10x3/uL (1.40-6.50); %Basophils 1.1 % (0.0-1.0); %Eosinophils 3.9 % (0.0-10.0); %Lymphocytes 23.6 % (21.0-51.0); %Monocytes 8.4 % (0.0-10.0); %Neutrophils 62.6 % (42.0-75.0); Hematocrit 32.7 % (42.0-52.0); Hemoglobin 10.7 g/dL (14.0-18.0); Mean Corpuscular Hemoglobin 29.2 pg (27.0-31.0); Mean Corpuscular Volume 89.3 fL (78.0-98.0); Platelet Count 204 10x3/uL (130-400); Red Blood Cell (RBC) Count 3.66 mill/uL (4.70-6.10); White Blood Cell (WBC) Count 5.34 10x3/uL (4.8-10.8)
[2025-05-31 08:05] LABS: BUN (Urea Nitrogen) 37 mg/dL (8.4-25.7); Calc. Creatinine Clearance 43 mL/min (70-130)
[2025-05-31 08:06] LABS: Calcium 8.0 mg/dL (7.8-10.44); Chloride 110 mmol/L (98-107); Glucose 89 mg/dL (80-115); Potassium 4.3 mmol/L (3.5-5.1); Sodium 138 mmol/L (136-145)
[2025-05-31 08:07] LABS: Anion Gap 12 mmol/L (10-20); Carbon Dioxide 20 mmol/L (23-31)
[2025-06-01 04:55] LABS: #Basophils 0.06 10x3/uL (0.0-0.2); #Eosinophils 0.25 10x3/uL (0.0-0.7); #Monocytes 0.42 10x3/uL (0.11-0.59); #Neutrophils 2.83 10x3/uL (1.40-6.50); %Basophils 1.3 % (0.0-1.0); %Eosinophils 5.4 % (0.0-10.0); %Lymphocytes 23.3 % (21.0-51.0); %Monocytes 9.0 % (0.0-10.0); %Neutrophils 60.6 % (42.0-75.0); Hematocrit 33.0 % (42.0-52.0); Hemoglobin 10.8 g/dL (14.0-18.0); Mean Corpuscular Hemoglobin 29.5 pg (27.0-31.0); Mean Corpuscular Volume 90.2 fL (78.0-98.0); Platelet Count 197 10x3/uL (130-400); Red Blood Cell (RBC) Count 3.66 mill/uL (4.70-6.10); White Blood Cell (WBC) Count 4.67 10x3/uL (4.8-10.8)
[2025-06-01 05:09] LABS: Anion Gap 13 mmol/L (10-20); BUN (Urea Nitrogen) 44 mg/dL (8.4-25.7); Calc. Creatinine Clearance 36 mL/min (70-130); Calcium 8.0 mg/dL (7.8-10.44); Carbon Dioxide 19 mmol/L (23-31); Chloride 109 mmol/L (98-107); Glucose 151 mg/dL (80-115); Potassium 4.6 mmol/L (3.5-5.1); Sodium 136 mmol/L (136-145)
[2025-06-02 04:50] LABS: #Basophils 0.05 10x3/uL (0.0-0.2); #Eosinophils 0.23 10x3/uL (0.0-0.7); #Monocytes 0.41 10x3/uL (0.11-0.59); #Neutrophils 3.16 10x3/uL (1.40-6.50); %Basophils 1.0 % (0.0-1.0); %Eosinophils 4.7 % (0.0-10.0); %Lymphocytes 20.7 % (21.0-51.0); %Monocytes 8.4 % (0.0-10.0); %Neutrophils 64.8 % (42.0-75.0); Hematocrit 36.2 % (42.0-52.0); Hemoglobin 11.6 g/dL (14.0-18.0); Mean Corpuscular Hemoglobin 29.1 pg (27.0-31.0); Mean Corpuscular Volume 91.0 fL (78.0-98.0); Platelet Count 192 10x3/uL (130-400); Red Blood Cell (RBC) Count 3.98 mill/uL (4.70-6.10); White Blood Cell (WBC) Count 4.88 10x3/uL (4.8-10.8)
[2025-06-02 05:12] LABS: Anion Gap 11 mmol/L (10-20); BUN (Urea Nitrogen) 42 mg/dL (8.4-25.7); Calc. Creatinine Clearance 42 mL/min (70-130); Calcium 8.1 mg/dL (7.8-10.44); Carbon Dioxide 20 mmol/L (23-31); Chloride 110 mmol/L (98-107); Glucose 119 mg/dL (80-115); Potassium 4.2 mmol/L (3.5-5.1); Sodium 137 mmol/L (136-145)
[2025-06-02 11:13] VITALS: BP 162/77; TEMP 98
[2025-06-02 14:35] VITALS: BMI 23.8
== END 2025-06-02 15:56 | disposition home or self-care (01) | DRG 637 ==
LOC: ERS 22:47 → IMCU/EMU 05-27 01:25 → 2NO 05-28 09:00
PROVIDERS: ADMIT Internal Medicine; ATTEND Family Medicine
DX: E11.649 Type 2 diabetes mellitus with hypoglycemia without coma (principal); G93.41 Metabolic encephalopathy; E87.20 Acidosis, unspecified; I50.32 Chronic diastolic (congestive) heart failure; N18.30 Chronic kidney disease, stage 3 unspecified; T38.3X5A Adverse effect of insulin and oral hypoglycemic [antidiabetic] drugs, initial encounter; I12.9 Hypertensive chronic kidney disease with stage 1 through stage 4 chronic kidney disease, or unspecified chronic kidney disease; E11.22 Type 2 diabetes mellitus with diabetic chronic kidney disease; T68.XXXA Hypothermia, initial encounter; I16.0 Hypertensive urgency; D63.1 Anemia in chronic kidney disease; Z79.899 Other long term (current) drug therapy
CPT/HCPCS: 36415; 36416; 70450; 71045; 80048; 80053; 81001; 83036; 83735; 83880; 85025; 93005; J0360; J1644; J1815; J7999

== ENCOUNTER 2025-06-29 21:06 | Inpatient (IN) | payer MEDICARE, MEDICAID ==
[~2025-06-29 21:06] MED LIST: Iopamidol-370 76% 500 ML MDV (1 ML CHARGE) ONE
[2025-06-29] MEDS ORDERED: hydrALAZINE 20 MG/ML VIAL ONE (21:48)
[2025-06-29 22:03] LABS: Actual Bicarbonate (HCO3v) 18.9 mEq/L (22-28); Base Excess -6.8 mEq/L (-2.0 to +3.0); Calcium, Ionized (venous) 1.16 mmol/L (1.16-1.32); Chloride (VBG) 109 mmol/L (98-106); Hematocrit-VBG 44 % (42.0-52.0); Hemoglobin (Hb) 14.8 g/dL (13.1-17.2); Potassium (VBG) 3.98 mmol/L (3.70-5.30); Sodium 142 mmol/L (133-146)
[2025-06-29 22:12] LABS: #Basophils 0.05 10x3/uL (0.0-0.2); #Eosinophils 0.18 10x3/uL (0.0-0.7); #Monocytes 0.42 10x3/uL (0.11-0.59); #Neutrophils 4.31 10x3/uL (1.40-6.50); %Basophils 0.9 % (0.0-1.0); %Eosinophils 3.1 % (0.0-10.0); %Lymphocytes 14.9 % (21.0-51.0); %Monocytes 7.2 % (0.0-10.0); %Neutrophils 73.6 % (42.0-75.0); Hematocrit 42.9 % (42.0-52.0); Hemoglobin 14.2 g/dL (14.0-18.0); Mean Corpuscular Hemoglobin 29.1 pg (27.0-31.0); Mean Corpuscular Volume 87.9 fL (78.0-98.0); Platelet Count 168 10x3/uL (130-400); Red Blood Cell (RBC) Count 4.88 mill/uL (4.70-6.10); White Blood Cell (WBC) Count 5.85 10x3/uL (4.8-10.8)
[2025-06-29 22:24] LABS: Bacteria/HPF None Seen HPF (None Seen); CAUTI Indications for Culture Alt mental st,lethar; Glucose, Urine (Dipstick) Greater than 1000 mg/dL (Negative); Leukocyte Negative Leu/uL (Negative); Protein, Urine (Dipstick) 300 mg/dL (Neg-Trace); RBC/HPF 0-3 HPF (0-3); Specific Gravity, Urine 1.019 (1.002-1.036); WBC/HPF 0-3 HPF (0-3)
[2025-06-29 22:26] LABS: Urine Culture Reflex No No
[2025-06-29 22:41] LABS: ALT (SGPT) 9 U/L (Less than 45); AST (SGOT) 19 U/L (11-34); Albumin 2.2 g/dL (3.1-4.5); Alkaline Phosphatase 67 U/L (40-110); Anion Gap 15 mmol/L (10-20); BUN (Urea Nitrogen) 28 mg/dL (8.4-25.7); Bilirubin, Total 0.4 mg/dL (0.3-1.2); Calc. Creatinine Clearance 0 mL/min (70-130); Calcium 8.5 mg/dL (7.8-10.44); Carbon Dioxide 19 mmol/L (23-31); Chloride 113 mmol/L (98-107); Globulin 3.7 g/dL (2.4-3.5); Glucose 135 mg/dL (80-115); Magnesium 2.2 mg/dL (1.6-2.6); Potassium 3.9 mmol/L (3.5-5.1); Sodium 143 mmol/L (136-145)
[2025-06-29] MEDS ORDERED: cefTRIAXone (ROCEPHIN) 2 GM VIAL ONE (23:27)
[2025-06-30] MEDS ORDERED: Furosemide 40 MG (4 mL) VIAL ONE (00:31)
[2025-06-30] MEDS ORDERED: Melatonin 3 MG TAB PO PRN (00:36)
[2025-06-30] MEDS ORDERED: Senokot S 8.6-50 MG TAB PO PRN (00:36)
[2025-06-30] MEDS ORDERED: Acetaminophen 325 MG TAB PO PRN (00:36)
[2025-06-30] MEDS: Carvedilol 25 MG TAB PO SCH ×2 (02:53→08:04)
[2025-06-30] MEDS: hydrALAZINE 20 MG/ML VIAL SLOW IVP PRN (02:53)
[2025-06-30 03:26] LABS: #Basophils 0.07 10x3/uL (0.0-0.2); #Eosinophils 0.09 10x3/uL (0.0-0.7); #Monocytes 0.59 10x3/uL (0.11-0.59); #Neutrophils 6.47 10x3/uL (1.40-6.50); %Basophils 0.8 % (0.0-1.0); %Eosinophils 1.1 % (0.0-10.0); %Lymphocytes 12.6 % (21.0-51.0); %Monocytes 7.1 % (0.0-10.0); %Neutrophils 78.2 % (42.0-75.0); Hematocrit 43.9 % (42.0-52.0); Hemoglobin 13.7 g/dL (14.0-18.0); Mean Corpuscular Hemoglobin 28.5 pg (27.0-31.0); Mean Corpuscular Volume 91.3 fL (78.0-98.0); Platelet Count 168 10x3/uL (130-400); Red Blood Cell (RBC) Count 4.81 mill/uL (4.70-6.10); White Blood Cell (WBC) Count 8.28 10x3/uL (4.8-10.8)
[2025-06-30 03:49] LABS: Cocaine Metabolite Screen Negative (Negative); THC/Cannabinoid Screen Negative (Negative); Tricyclic Screen Negative (Negative)
[2025-06-30 03:53] LABS: ALT (SGPT) 9 U/L (Less than 45); AST (SGOT) 20 U/L (11-34); Albumin 2.3 g/dL (3.1-4.5); Alkaline Phosphatase 67 U/L (40-110); Anion Gap 24 mmol/L (10-20); BUN (Urea Nitrogen) 34 mg/dL (8.4-25.7); Bilirubin, Total 0.3 mg/dL (0.3-1.2); Calc. Creatinine Clearance 40 mL/min (70-130); Calcium 8.6 mg/dL (7.8-10.44); Carbon Dioxide 13 mmol/L (23-31); Chloride 110 mmol/L (98-107); Globulin 3.9 g/dL (2.4-3.5); Glucose 151 mg/dL (80-115); Potassium 4.3 mmol/L (3.5-5.1); Sodium 143 mmol/L (136-145)
[2025-06-30] MEDS ORDERED: Dextrose 50% Abboject 50 ML SYRINGE SLOW IVP PRN (04:20)
[2025-06-30] MEDS ORDERED: Glucagon 1 MG/ML KIT IM PRN (04:20)
[2025-06-30] MEDS: Calcium Carbonate 500 MG ChewTAB PO PRN (04:46)
[2025-06-30] MEDS: Aspirin 81 mg Enteric Coated Tablet PO SCH (08:03)
[2025-06-30] MEDS: Sodium Bicarbonate Tab 325 MG TAB PO SCH (08:03)
[2025-06-30] MEDS: Heparin 5,000 UNITS/ML VIAL SC SCH (08:04)
[2025-06-30] MEDS: Furosemide 40 MG (4 mL) VIAL SLOW IVP SCH (08:04)
[2025-06-30] MEDS: Ondansetron PF 4 MG/2 ML Vial IVP PRN (08:35)
[2025-06-30] MEDS ORDERED: PNEUMOC 20-VAL CONJ-DIP CRM/PF 0.5 ML SYRINGE IM ONE (12:00)
[2025-06-30] MEDS: Scopolamine 1 mg/72 hour Patch TD SCH (12:16)
[2025-06-30] MEDS: Sodium Bicarb 50 MEQ/50 ML Abboject 8.4% SYRINGE IVP SCH (12:18)
[2025-06-30 13:52] LABS: Protein, Urine Random Quant 379.0 mg/dL (1-14)
[2025-06-30] MEDS: Insulin Glargine 30 UNITS/0.3 ML VIAL SC SCH (20:37)
[2025-07-01 05:23] LABS: #Basophils 0.04 10x3/uL (0.0-0.2); #Eosinophils 0.12 10x3/uL (0.0-0.7); #Monocytes 0.44 10x3/uL (0.11-0.59); #Neutrophils 4.15 10x3/uL (1.40-6.50); %Basophils 0.7 % (0.0-1.0); %Eosinophils 2.1 % (0.0-10.0); %Lymphocytes 17.3 % (21.0-51.0); %Monocytes 7.6 % (0.0-10.0); %Neutrophils 72.0 % (42.0-75.0); Hematocrit 39.9 % (42.0-52.0); Hemoglobin 12.1 g/dL (14.0-18.0); Mean Corpuscular Hemoglobin 28.5 pg (27.0-31.0); Mean Corpuscular Volume 94.1 fL (78.0-98.0); Platelet Count 160 10x3/uL (130-400); Red Blood Cell (RBC) Count 4.24 mill/uL (4.70-6.10); White Blood Cell (WBC) Count 5.77 10x3/uL (4.8-10.8)
[2025-07-01 07:33] LABS: Anion Gap 21 mmol/L (10-20); BUN (Urea Nitrogen) 53 mg/dL (8.4-25.7); Calc. Creatinine Clearance 22 mL/min (70-130); Calcium 7.6 mg/dL (7.8-10.44); Carbon Dioxide 15 mmol/L (23-31); Chloride 111 mmol/L (98-107); Glucose 294 mg/dL (80-115); Potassium 4.5 mmol/L (3.5-5.1); Sodium 142 mmol/L (136-145)
[2025-07-01] MEDS: Ergocalciferol 1.25 MG(50,000 UNITS) CAP PO SCH (10:02)
[2025-07-01 15:32] LABS: Anion Gap 17 mmol/L (10-20); BUN (Urea Nitrogen) 55 mg/dL (8.4-25.7); Calc. Creatinine Clearance 0 mL/min (70-130); Calcium 7.4 mg/dL (7.8-10.44); Carbon Dioxide 18 mmol/L (23-31); Chloride 109 mmol/L (98-107); Glucose 296 mg/dL (80-115); Potassium 4.4 mmol/L (3.5-5.1); Sodium 140 mmol/L (136-145)
[2025-07-01] MEDS: Insulin Glargine 30 UNITS/0.3 ML VIAL SC SCH (21:02)
[2025-07-02 05:24] LABS: #Basophils 0.04 10x3/uL (0.0-0.2); #Eosinophils 0.41 10x3/uL (0.0-0.7); #Monocytes 0.46 10x3/uL (0.11-0.59); #Neutrophils 4.03 10x3/uL (1.40-6.50); %Basophils 0.7 % (0.0-1.0); %Eosinophils 7.0 % (0.0-10.0); %Lymphocytes 15.6 % (21.0-51.0); %Monocytes 7.8 % (0.0-10.0); %Neutrophils 68.6 % (42.0-75.0); Hematocrit 33.1 % (42.0-52.0); Hemoglobin 10.5 g/dL (14.0-18.0); Mean Corpuscular Hemoglobin 29.1 pg (27.0-31.0); Mean Corpuscular Volume 91.7 fL (78.0-98.0); Platelet Count 143 10x3/uL (130-400); Red Blood Cell (RBC) Count 3.61 mill/uL (4.70-6.10); White Blood Cell (WBC) Count 5.88 10x3/uL (4.8-10.8)
[2025-07-02 05:46] LABS: Anion Gap 13 mmol/L (10-20); BUN (Urea Nitrogen) 61 mg/dL (8.4-25.7); Calc. Creatinine Clearance 18 mL/min (70-130); Calcium 7.2 mg/dL (7.8-10.44); Carbon Dioxide 21 mmol/L (23-31); Chloride 109 mmol/L (98-107); Glucose 210 mg/dL (80-115); Potassium 4.0 mmol/L (3.5-5.1); Sodium 139 mmol/L (136-145)
[2025-07-03 06:35] LABS: #Basophils 0.03 10x3/uL (0.0-0.2); #Eosinophils 0.31 10x3/uL (0.0-0.7); #Monocytes 0.35 10x3/uL (0.11-0.59); #Neutrophils 2.60 10x3/uL (1.40-6.50); %Basophils 0.7 % (0.0-1.0); %Eosinophils 7.0 % (0.0-10.0); %Lymphocytes 25.2 % (21.0-51.0); %Monocytes 7.9 % (0.0-10.0); %Neutrophils 59.0 % (42.0-75.0); Hematocrit 35.4 % (42.0-52.0); Hemoglobin 11.3 g/dL (14.0-18.0); Mean Corpuscular Hemoglobin 28.8 pg (27.0-31.0); Mean Corpuscular Volume 90.1 fL (78.0-98.0); Platelet Count 151 10x3/uL (130-400); Red Blood Cell (RBC) Count 3.93 mill/uL (4.70-6.10); White Blood Cell (WBC) Count 4.41 10x3/uL (4.8-10.8)
[2025-07-03 06:47] LABS: Anion Gap 12 mmol/L (10-20); BUN (Urea Nitrogen) 52 mg/dL (8.4-25.7); Calc. Creatinine Clearance 23 mL/min (70-130); Calcium 7.5 mg/dL (7.8-10.44); Carbon Dioxide 23 mmol/L (23-31); Chloride 112 mmol/L (98-107); Glucose 147 mg/dL (80-115); Potassium 3.9 mmol/L (3.5-5.1); Sodium 143 mmol/L (136-145)
[2025-07-04 04:55] LABS: #Basophils 0.04 10x3/uL (0.0-0.2); #Eosinophils 0.27 10x3/uL (0.0-0.7); #Monocytes 0.33 10x3/uL (0.11-0.59); #Neutrophils 2.29 10x3/uL (1.40-6.50); %Basophils 1.0 % (0.0-1.0); %Eosinophils 6.8 % (0.0-10.0); %Lymphocytes 26.5 % (21.0-51.0); %Monocytes 8.3 % (0.0-10.0); %Neutrophils 57.1 % (42.0-75.0); Hematocrit 34.8 % (42.0-52.0); Hemoglobin 11.2 g/dL (14.0-18.0); Mean Corpuscular Hemoglobin 28.5 pg (27.0-31.0); Mean Corpuscular Volume 88.5 fL (78.0-98.0); Platelet Count 143 10x3/uL (130-400); Red Blood Cell (RBC) Count 3.93 mill/uL (4.70-6.10); White Blood Cell (WBC) Count 4.00 10x3/uL (4.8-10.8)
[2025-07-04 05:19] LABS: Anion Gap 10 mmol/L (10-20); BUN (Urea Nitrogen) 43 mg/dL (8.4-25.7); Calc. Creatinine Clearance 31 mL/min (70-130); Calcium 7.5 mg/dL (7.8-10.44); Carbon Dioxide 23 mmol/L (23-31); Chloride 112 mmol/L (98-107); Glucose 149 mg/dL (80-115); Potassium 3.7 mmol/L (3.5-5.1); Sodium 141 mmol/L (136-145)
[2025-07-04] MEDS: Ergocalciferol 1.25 MG(50,000 UNITS) CAP PO SCH (15:20)
[2025-07-04] MEDS: Cholecalciferol 1,000 UNITS (25 MCG) TAB PO SCH (16:46)
[2025-07-05 05:14] LABS: #Basophils 0.03 10x3/uL (0.0-0.2); #Eosinophils 0.26 10x3/uL (0.0-0.7); #Monocytes 0.31 10x3/uL (0.11-0.59); #Neutrophils 2.29 10x3/uL (1.40-6.50); %Basophils 0.7 % (0.0-1.0); %Eosinophils 6.5 % (0.0-10.0); %Lymphocytes 27.5 % (21.0-51.0); %Monocytes 7.7 % (0.0-10.0); %Neutrophils 56.9 % (42.0-75.0); Hematocrit 33.7 % (42.0-52.0); Hemoglobin 10.9 g/dL (14.0-18.0); Mean Corpuscular Hemoglobin 28.9 pg (27.0-31.0); Mean Corpuscular Volume 89.4 fL (78.0-98.0); Platelet Count 142 10x3/uL (130-400); Red Blood Cell (RBC) Count 3.77 mill/uL (4.70-6.10); White Blood Cell (WBC) Count 4.03 10x3/uL (4.8-10.8)
[2025-07-05 05:26] LABS: Anion Gap 9 mmol/L (10-20); BUN (Urea Nitrogen) 34 mg/dL (8.4-25.7); Calc. Creatinine Clearance 38 mL/min (70-130); Calcium 7.7 mg/dL (7.8-10.44); Carbon Dioxide 24 mmol/L (23-31); Chloride 110 mmol/L (98-107); Glucose 144 mg/dL (80-115); Potassium 3.6 mmol/L (3.5-5.1); Sodium 139 mmol/L (136-145)
[2025-07-05] MEDS: Cholecalciferol 1,000 UNITS (25 MCG) TAB PO SCH (08:51)
[2025-07-06 10:02] LABS: #Basophils 0.04 10x3/uL (0.0-0.2); #Eosinophils 0.29 10x3/uL (0.0-0.7); #Monocytes 0.30 10x3/uL (0.11-0.59); #Neutrophils 2.31 10x3/uL (1.40-6.50); %Basophils 1.0 % (0.0-1.0); %Eosinophils 7.0 % (0.0-10.0); %Lymphocytes 28.6 % (21.0-51.0); %Monocytes 7.3 % (0.0-10.0); %Neutrophils 55.9 % (42.0-75.0); Hematocrit 36.1 % (42.0-52.0); Hemoglobin 11.2 g/dL (14.0-18.0); Mean Corpuscular Hemoglobin 28.5 pg (27.0-31.0); Mean Corpuscular Volume 91.9 fL (78.0-98.0); Platelet Count 160 10x3/uL (130-400); Red Blood Cell (RBC) Count 3.93 mill/uL (4.70-6.10); White Blood Cell (WBC) Count 4.13 10x3/uL (4.8-10.8)
[2025-07-06 10:13] LABS: Albumin 2.0 g/dL (3.1-4.5); Anion Gap 7 mmol/L (10-20); BUN (Urea Nitrogen) 30 mg/dL (8.4-25.7); BUN/Creatinine Ratio 13.45; Calc. Creatinine Clearance 43 mL/min (70-130); Calcium 8.1 mg/dL (7.8-10.44); Carbon Dioxide 27 mmol/L (23-31); Chloride 109 mmol/L (98-107); Glucose 102 mg/dL (80-115); Potassium 3.7 mmol/L (3.5-5.1); Sodium 139 mmol/L (136-145)
[2025-07-06 11:06] VITALS: BP 123/60; TEMP 98.6
[2025-07-06 12:41] LABS: ANA Symphony (Qualitative) Negative (Negative); ANA Symphony (Quantitative) 0.3 Ratio (< 0.7 Negative); dsDNA IgG Antibody 1.0 IU/mL (<10 Negative)
== END 2025-07-06 14:19 | DRG 280 ==
LOC: ERS 21:06 → 2NO 06-30 00:17 → T4-B 07-05 19:57
PROVIDERS: ADMIT Internal Medicine; ATTEND Internal Medicine
PROC: 0T9B70Z Drainage of Bladder with Drainage Device, Via Natural or Artificial Opening (ICD-10-PCS; principal; 2025-07-01)
PROC: 0TPBX0Z Removal of Drainage Device from Bladder, External Approach (ICD-10-PCS; 2025-07-06)
DX: I13.0 Hypertensive heart and chronic kidney disease with heart failure and stage 1 through stage 4 chronic kidney disease, or unspecified chronic kidney disease (principal); G93.41 Metabolic encephalopathy; I21.A1 Myocardial infarction type 2; I50.33 Acute on chronic diastolic (congestive) heart failure; N17.0 Acute kidney failure with tubular necrosis; I67.4 Hypertensive encephalopathy; E87.20 Acidosis, unspecified; N25.81 Secondary hyperparathyroidism of renal origin; N18.4 Chronic kidney disease, stage 4 (severe); E78.5 Hyperlipidemia, unspecified; E11.22 Type 2 diabetes mellitus with diabetic chronic kidney disease; I16.0 Hypertensive urgency; E11.65 Type 2 diabetes mellitus with hyperglycemia; D63.1 Anemia in chronic kidney disease; E88.09 Other disorders of plasma-protein metabolism, not elsewhere classified; E11.21 Type 2 diabetes mellitus with diabetic nephropathy; R33.9 Retention of urine, unspecified; R80.9 Proteinuria, unspecified; E55.9 Vitamin D deficiency, unspecified; Z91.148 Patient's other noncompliance with medication regimen for other reason; Z79.82 Long term (current) use of aspirin; Z91.018 Allergy to other foods; Z79.899 Other long term (current) drug therapy; Z99.3 Dependence on wheelchair
CPT/HCPCS: 36415; 36416; 70450; 71045; 71260; 74177; 76770; 80048; 80053; 80069; 80306; 81001; 82306; 82570; 82805; 83036; 83605; 83735; 83880; 83970; 84156; 84484; 85025; 86038; 86225; 87040; 93005; J0360; J0696; J1642; J1644; J1815; J1940; J2405; Q9967